=== PATIENT | female | born 1930 | race Caucasian/White ===

== ENCOUNTER 2016-10-21 15:17 | Inpatient (IN) | payer MEDICARE, OTHER ==
[~2016-10-21] VITALS: Ht 154.9 cm; Wt 57.7 kg
[2016-10-21] VITALS (7 sets, daily range): BP systolic 140–171; BP diastolic 72–114; PULSE 72–131; RESP 20; TEMP 98.1–98.7; O2SAT 95–98
[~2016-10-21 15:17] MED LIST: ACET325T11 PO; ASPI81 CHEW; CENTTAB9 PO; CERTTAB6; CITRTAB8 PO; LANSO15 PO; LEVO50TA4 PO; LISI10 PO; LORA0.5T PO; METO25 PO; PACE200T4 PO; SODI1 PO; VITA100018 PO
[2016-10-21] MEDS ORDERED: cefTRIAXone INJ 1,000 MG in SODIUM CHLORIDE 0.9% INJ 100 ML IV ONE (15:30)
[2016-10-21] MEDS ORDERED: SODIUM CHLORIDE 0.9% FLUSH 10 ML FLUSH IVF PRN (15:30)
[2016-10-21] MEDS ORDERED: AZITHROMYCIN INJ 500 MG in SODIUM CHLOR 0.9% 250 ML INJ 250 ML IV ONE (15:30)
[2016-10-21] MEDS ORDERED: methylPREDNISolone SOD SUCC 125 MG/2 ML VIAL IVP ONE (15:30)
--- NOTE | 2016-10-21 15:35 | PD ---
HPI Chief Complaint: cough with pneumonia. Time Seen by Provider: 15:30 Travel History International Travel<30 days: No Contact w/Intl Traveler<30days: No Traveled to known affect area: No History of Present Illness HPI 86-year-old female brought in by EMS from local urgent care with diagnosis of bronchitis/pneumonia. Patient states partially one-week history of increasing cough symptoms with increased cough and shortness of breath and wheezing. Patient has felt feverish and had chills. Patient has no chest pain or lower extremity edema. Patient states started with a head cold which settled in her chest. Currently patient has no headache, sore throat, ear pain , or other upper respiratory symptoms. Patient has no history of COPD or lung disease in the past. Patient does have a history of A. fib and has a pacemaker. Patient denies abdominal pain, nausea, vomiting, or diarrhea. Patient is allergic to anesthesia, Biaxin, codeine, lactose, morphine, Tussionex , and Talwin. PFSH Past Medical History Hx Anticoagulant Therapy: No Arthritis: Yes Asthma: No Atrial Fibrillation: Yes (PAROXYSMAL) Autoimmune Disease: No Blood Disorders: No (brain bleed from fall ) Anxiety: Yes Depression: No Heart Rhythm Problems: Yes (afib, mitral valve prolapse ) Cancer: No Cardiac Catheterization: Yes (09-26-11) Cardiovascular Problems: Yes High Cholesterol: No Chemotherapy: No Chest Pain: Yes Congestive Heart Failure: No COPD: No Cerebrovascular Accident: No Diabetes: No Diminished Hearing: No Endocrine: No Gastrointestinal Disorders: Yes (GERD) GERD: Yes Genitourinary: No Headaches: Yes Hepatitis: No Hiatal Hernia: No Hypertension: Yes Immune Disorder: No Implanted Vascular Access Dvce: Yes Kidney Stones: No Musculoskeletal: Yes (R/L hip replacement.) Neurologic: Yes (brain bleed from fall 02/14/16) Psychiatric: Yes Reproductive: No Respiratory: No Migraines: No Radiation Therapy: No Renal Failure: Yes Seizures: No Sickle Cell Disease: No Sleep Apnea: No Thyroid Disease: Yes Ulcer: No Menopausal: Yes Past Surgical History Abdominal Surgery: Yes (gall bladder) AICD: No Arteriovenous Shunt: No Body Medical Devices: bilateral hips, and pacemaker Cardiac Surgery: Yes (2002, 2012) Cholecystectomy: Yes ([facility] 10-18-93) Coronary Artery Bypass Graft: No Ear Surgery: No Endocrine Surgery: No Eye Surgery: Yes (cataract Bilateral) Genitourinary Surgery: No Gynecologic Surgery: No Hysterectomy: No Insulin Pump: No Joint Replacement: Yes (hip replacment) Neurologic Surgery: No Oral Surgery: Yes (gum surgery) Pacemaker: Yes ([employer]) Thoracic Surgery: No Other Surgery: Yes (PACEMAKER INSERTION 01/07, BIOPSY L LUNG, ) Social History Alcohol Use: No Tobacco Use: No Substance Use: No Allergies-Medications (Allergen,Severity, Reaction): Coded Allergies: Codeine (Verified Allergy, Severe, SEVERE N/V, 03/11/16) . Lactose (Verified Allergy, Severe, 03/11/16) . Talwin (Unverified Allergy, Severe, Psychosis, 03/11/16) Biaxin (Verified Allergy, Unknown, 03/11/16) Morphine (Verified Allergy, Unknown, 03/11/16) Uncoded Allergies: ANAESTHESIA (Allergy, Severe, CARDIAC ARREST, 09/25/11) ANESTHESIA (Allergy, Severe, CARDIAC ARREST, 06/21/15) TUSSINEX (Allergy, Unknown, 06/21/15) Reported Meds & Prescriptions Reported Meds & Active Scripts Active Reported Glucosamine (Glucosamine Sulfate) 500 Mg Cap 900 Mg PO DAILY D3 (Cholecalciferol) 1,000 Unit Cap 1,000 Unit PO DAILY Calcium Citrate + D3 (Calcium Citrate-Vitamin D) 200-250 Mg-Unit Tab 1 Tab PO BID Fluticasone Nasal [place] 50 Mcg/Act Naspr 50 Mcg EACH NARE BID 50 mcg/spray Tylenol (Acetaminophen) 325 Mg Tab 325 Mg PO Q6H PRN Lorazepam 0.5 Mg Tab 0.5 Mg PO DAILY PRN Levothyroxine (Levothyroxine Sodium) 50 Mcg Tab 50 Mcg PO DAILY Amiodarone (Amiodarone HCl) 100 Mg Tab 100 Mg PO DAILY Sodium Chloride 1 Gm Tab 1 Gm PO DAILY Metoprolol Tartrate 25 Mg Tab 12.5 Mg PO BID Lisinopril 5 Mg Tab 5 Mg PO DAILY Aspirin 81 Mg Chew 81 Mg CHEW DAILY Lansoprazole 30 Mg Capdr 30 Mg PO DAILY Review of Systems Except as stated in HPI: all other systems reviewed are Neg General / Constitutional: Positive: Fever (subjective.), Chills Eyes: No: Visual changes HENT: No: Headaches, Lightheadedness, Sore Throat, Rhinitis, Rhinorrhea, Congestion, Neck Stiffness, Neck Pain, Ear Discharge, Earache Cardiovascular: Positive: Dyspnea on exertion, No: Chest Pain or Discomfort, Palpitations, Irregular Rhythm, Tachycardia, Diaphoresis Respiratory: Positive: Cough, Shortness of Breath, Wheezing, No: Sneezing, Orthopnea, Hemoptysis, Stridor, Night Sweats, Pleuritic Pain Gastrointestinal: No: Nausea, Vomiting, Diarrhea, Abdominal Pain Genitourinary: No: Dysuria Musculoskeletal: No: Pain Skin: No Rash Neurologic: No: Weakness Psychiatric: No: Depression Endocrine: No: Polydipsia Hematologic/Lymphatic: No: Easy Bruising Physical Exam Narrative GENERAL: Patient appears in mild distress. Patient has wet tachycardia cough. Patient otherwise is pleasant. SKIN: Warm and dry. Normal color. Normal turgor. HEAD: Atraumatic. Normocephalic. EYES: Pupils equal and round. No scleral icterus. No injection or drainage. ENT: No nasal bleeding or discharge. Mucous membranes pink and moist. TMs are clear bilaterally. No sinus tenderness. Pharynx appears normal without significant erythema or postnasal drip. Airway is patent. NECK: Trachea midline. No JVD. Neck is supple nontender. CARDIOVASCULAR: Regular rate and rhythm. No murmurs gallops or rubs appreciated. RESPIRATORY: No accessory muscle use. Diffuse breath sounds with wheezing to auscultation. Breath sounds equal bilaterally. No significant egophony or increased fremitus. GASTROINTESTINAL: Abdomen soft, non-tender, nondistended. Hepatic and splenic margins not palpable. MUSCULOSKELETAL: Extremities without clubbing, cyanosis, or edema. No obvious deformities. NEUROLOGICAL: Awake and alert. No obvious cranial nerve deficits. Motor grossly within normal limits. Five out of 5 muscle strength in the arms and legs. Normal speech. PSYCHIATRIC: Appropriate mood and affect; insight and judgment normal. Data Data Last Documented VS Vital Signs Date Time Temp Pulse Resp B/P Pulse Ox O2 Delivery O2 Flow Rate FiO2 10/21/16 15:17 98.7 76 20 140/102 95 Orders Complete Blood Count With Diff (10/21/16 15:28) Comprehensive Metabolic Panel (10/21/16 15:28) B-Type Natriuretic Peptide (10/21/16 15:28) Prothrombin Time / Inr (Pt) (10/21/16 15:28) Ckmb (Isoenzyme) Profile (10/21/16 15:28) Troponin I (10/21/16 15:28) Urinalysis - C+S If Indicated (10/21/16 15:28) Blood Culture (10/21/16 15:28) Iv Access Insert/Monitor (10/21/16:28) Electrocardiogram (10/21/16 15:28) Ecg Monitoring (10/21/16 15:28) Oximetry (10/21/16 15:28) Oxygen Administration (10/21/16 15:28) Chest, Single Ap (10/21/16 15:28) Sodium Chloride 0.9% Flush (Ns Flush) (10/21/16 15:30) Methylprednisolone So Succ Inj (Solumedr (10/21/16 15:30) Albuterol-Ipratropium Neb (Duoneb Neb) (10/21/16 15:30) Azithromycin Inj (Zithromax Inj) (10/21/16 15:30) Ceftriaxone Inj (Rocephin Inj) (10/21/16 15:30) Lactic Acid (10/21/16 16:30) Urine Culture (10/21/16 15:56) CKMB (10/21/16 15:35) CKMB% (10/21/16 15:35) Labs Laboratory Tests Test 10/21/16 10/21/16 10/21/16 13:24 15:35 15:56 B-Type Natriuretic Peptide 239 PG/ML White Blood Count 13.6 TH/MM3 Red Blood Count 4.37 MIL/MM3 Hemoglobin 13.6 GM/DL Hematocrit 38.3 % Mean Corpuscular Volume 87.7 FL Mean Corpuscular Hemoglobin 31.0 PG Mean Corpuscular Hemoglobin 35.4 % Concent Red Cell Distribution Width 13.3 % Platelet Count 174 TH/MM3 Mean Platelet Volume 6.8 FL Neutrophils (%) (Auto) 87.6 % Lymphocytes (%) (Auto) 3.8 % Monocytes (%) (Auto) 8.2 % Eosinophils (%) (Auto) 0.3 % Basophils (%) (Auto) 0.1 % Neutrophils # (Auto) 11.9 TH/MM3 Lymphocytes # (Auto) 0.5 TH/MM3 Monocytes # (Auto) 1.1 TH/MM3 Eosinophils # (Auto) 0.0 TH/MM3 Basophils # (Auto) 0.0 TH/MM3 CBC Comment DIFF FINAL Differential Comment Prothrombin Time 10.6 SEC Prothromb Time International 1.0 RATIO Ratio Sodium Level 123 MEQ/L Potassium Level 3.8 MEQ/L Chloride Level 87 MEQ/L Carbon Dioxide Level 25.6 MEQ/L Anion Gap 10 MEQ/L Blood Urea Nitrogen 6 MG/DL Creatinine 0.40 MG/DL Estimat Glomerular Filtration 151 ML/MIN Rate Random Glucose 117 MG/DL Lactic Acid Level 1.0 mmol/L Calcium Level 8.6 MG/DL Total Bilirubin 0.4 MG/DL Aspartate Amino Transf 47 U/L (AST/SGOT) Alanine Aminotransferase 40 U/L (ALT/SGPT) Alkaline Phosphatase 80 U/L Total Creatine Kinase 607 U/L Troponin I 0.02 NG/ML Total Protein 7.2 GM/DL Albumin 3.7 GM/DL Urine Color YELLOW Urine Turbidity HAZY Urine pH 6.5 Urine Specific [place] 1.010 Urine Protein 100 mg/dL Urine Glucose (UA) NEG mg/dL Urine Ketones TRACE mg/dL Urine Occult Blood SMALL Urine Nitrite NEG Urine Bilirubin NEG Urine Urobilinogen LESS THAN 2.0 MG/DL Urine Leukocyte Esterase MOD Urine RBC 5 /hpf Urine WBC 40 /hpf Urine Squamous Epithelial 2 /hpf Cells Urine Bacteria OCC /hpf Urine Mucus FEW /lpf Microscopic Urinalysis Comment CULTURE INDICATED MDM Medical Decision Making Medical Screen Exam Complete: Yes Emergency Medical Condition: Yes Differential Diagnosis Upper respiratory infection. Cough. Wheezing. Pneumonia. Bronchitis. CHF. Narrative Course Patient is medically stable at time of exam. Labs ordered including CBC, CMP, thoracic acid, blood cultures 2, proBNP, troponin, magnesium, and urinalysis. IV access is obtained patient is given 125 mg Solu-Medrol IV as well as 500 mg azithromycin IV and 1000 mg Rocephin IV. Chest x-ray is ordered as well as DuoNeb one every 15 minutes 3. CBC shows leukocytosis of 13.6. Neutrophils elevated 87.6%. BNP slightly elevated at 239. Chest x-ray here as shown to have bilateral atelectasis without obvious pneumonia. This is per radiologist. Urinalysis shows signs of urinary tract infection. Urine culture is pending. CMP shows a sodium of 123. Potassium normal 3.8, chloride is 87, weight is 6, creatinine of 0.40. Creatinine kinase is elevated at 607. 1640 hrs. call hospitalist for admission. 1650 hrs., patient discussed with Dr. Crawford who agrees to admit the patient. Diagnosis Primary Impression: Acute wheezy bronchitis Additional Impressions: Cough in adult Dyspnea Qualified Code: R06.09 - Other form of dyspnea Hyponatremia Urinary tract infection Qualified Code: N30.00 - Acute cystitis without hematuria Admitting Information Admitting Physician Requests: Admit Condition: Stable Nakul Lozoya Oct 21, 2016 15:35
[2016-10-21 15:53] LABS: AUTOMATED NEUTROPHIL # 11.9 TH/MM3 (1.8-7.7); BASOPHIL % 0.1 % (0.0-2.0); EOSINOPHIL % 0.3 % (0.0-4.0); HEMATOCRIT 38.3 % (35.0-46.0); HEMO FLAGS DIFF FINAL; LYMPH % 3.8 % (9.0-44.0); LYMPHOCYTE # 0.5 TH/MM3 (1.0-4.8); MEAN CELL VOLUME 87.7 FL (80.0-100.0); MEAN CORPUSCULAR HGB CONC 35.4 % (32.0-36.0); MONO % 8.2 % (0.0-8.0); NEUT % 87.6 % (16.0-70.0); PLATELET COUNT 174 TH/MM3 (150-450); RED BLOOD COUNT 4.37 MIL/MM3 (4.00-5.30); RED CELL DISTRIBUTION WIDTH 13.3 % (11.6-17.2); WHITE BLOOD COUNT 13.6 TH/MM3 (4.0-11.0)
[2016-10-21 15:58] LABS: PROTHROMBIN TIME - PATIENT 10.6 SEC (9.8-11.6)
[2016-10-21 16:29] LABS: ALKALINE PHOSPHATASE 80 U/L (45-117); ALT (GPT) 40 U/L (10-53); ANION GAP 10 MEQ/L (5-15); AST (GOT) 47 U/L (15-37); BICARBONATE 25.6 MEQ/L (21.0-32.0); BLOOD UREA NITROGEN 6 MG/DL (7-18); CHLORIDE 87 MEQ/L (98-107); CREATINE KINASE 607 U/L (26-192); GLOMERULAR FILTRATION RATE 151 ML/MIN (>89); POTASSIUM 3.8 MEQ/L (3.5-5.1); TOTAL BILIRUBIN ADULT 0.4 MG/DL (0.2-1.0)
--- NOTE | 2016-10-21 16:30 | RADRPT ---
EXAM DATE/TIME: 10/21/2016 15:54 [place] COMPARISON: CHEST SINGLE AP, March 11, 2016, 7:31. INDICATIONS : Short of breath. MEDICAL HISTORY : None. SURGICAL HISTORY : Pacemaker. ENCOUNTER: Initial ACUITY: 1 day PAIN SCORE: 6/10 LOCATION: Bilateral chest FINDINGS: Pacer leads overlying right atrium and right ventricle. Heart size within normal limits. Minimal basi lar atelectasis. No effusion. No pneumothorax. Remote fracture proximal left humerus. CONCLUSION: 1. Minimal basilar atelectasis or scarring. No effusion or pneumothorax. Elevated right hemidiaphragm . Edin Johnston MD on October 21, 2016 at 16:28 Board Certified Radiologist. This report was verified electronically.
[2016-10-21] MEDS: RESP: ALBUTEROL 2.5 MG/IPRATROPIUM 0.5 MG NEB (SCH) INH (16:31)
[2016-10-21 16:33] LABS: BACTERIA, URINE OCC /hpf; BLOOD, URINE SMALL (NEG); COMMENT (UR) CULTURE INDICATED; CULTURE IF INDICATED CULTURE INDICATED; GLUCOSE,URINE NEG (NEG); KETONE, URINE TRACE mg/dL (NEG); MUCUS URINE FEW /lpf (OCC); NITRITE,URINE NEG (NEG); PH, URINE 6.5 (5.0-8.5); SQUAMOUS EPITHELIAL CELL URINE 2 /hpf (0-5); URINE COLOR YELLOW (YELLW/STRAW)
[2016-10-21] MEDS ORDERED: TYLE325T PO (16:36)
[2016-10-21] MEDS ORDERED: LEVO50TA4 PO (16:36)
[2016-10-21] MEDS ORDERED: FLUT50SP EACH NARE (16:36)
[2016-10-21] MEDS ORDERED: SODI1TAB PO (16:36)
[2016-10-21] MEDS ORDERED: LANS30CA PO (16:36)
[2016-10-21] MEDS ORDERED: LORA-373 PO (16:36)
[2016-10-21] MEDS ORDERED: ASPI81CH CHEW (16:36)
[2016-10-21] MEDS ORDERED: GLUC500C5 PO (16:36)
[2016-10-21] MEDS ORDERED: CALC1TAB PO (16:36)
[2016-10-21] MEDS ORDERED: METO25TA3 PO (16:36)
[2016-10-21] MEDS ORDERED: D31000CA PO (16:36)
[2016-10-21] MEDS ORDERED: AMIO0.1T PO (16:36)
[2016-10-21] MEDS ORDERED: LISI-519 PO (16:36)
[2016-10-21 16:40] LABS: SODIUM (NA) 123 MEQ/L (136-145)
[2016-10-21] MEDS ORDERED: SODIUM CHLOR 0.9% 1000 ML INJ 1,000 ML IV SCH (16:53)
[2016-10-21] MEDS ORDERED: ONDANSETRON HCL 4 MG/2 ML VIAL IVP PRN (17:00)
[2016-10-21] MEDS: DOCUSATE SODIUM 100 MG CAP PO SCH (17:00)
[2016-10-21] MEDS ORDERED: ACETAMINOPHEN 325 MG TAB PO PRN (17:00)
[2016-10-21] MEDS ORDERED: NALOXONE HCL 0.4 MG/ML AMP IV PRN (17:00)
[2016-10-21] MEDS ORDERED: BISACODYL 10 MG SUPP RECTAL PRN (17:00)
[2016-10-21] MEDS ORDERED: SODIUM CHLORIDE 0.9% FLUSH 10 ML FLUSH IV FLUSH PRN (17:00)
--- NOTE | 2016-10-21 17:04 | HHI.HP ---
[facility] Hakeem Mayorga MD Admission Diagnosis Bronchitis/UTI/ Hyponatremia Diagnoses: Chief Complaint: Pulmonary symptoms Travel History International Travel<30 Days: No Contact w/Intl Traveler <30 Da: No Traveled to Known Affected Are: No History of Present Illness This is a pleasant 86 y/o Female who was brought in from local Urgent care, for management of possible Pneumonia as per patient she has one week of worsening cough with shortness of breath, expiratory wheezing, some fever and chills, denied Chest pain, had sensation of Cold head and chest, denied headache, sore throat, ear pain, or other upper respiratory symptoms. Patient has no history of COPD or lung disease in the past. Patient does have a history of A. fib and has a pacemaker. Patient denies abdominal pain, nausea, vomiting , or diarrhea. Patient is allergic to anesthesia, Biaxin, codeine, lactose, morphine, Tussionex, and Talwin. as we know the patient has Hypertension, Atrial Fibrillation, Hyperlipidemia, subarachnoid hemorrhage, Anxiety disorder, Hypothyroidism, GERD, had Accelerated Hypertension in the past. seen in Emergency room in the presence of nurse Miss Salvador and her daughter Mrs. Ce Munoz,she states her mother is been dealing with Allergic symptoms for one month but is worse since Sunday meaning six days ago. 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 taking Sodium tablets Past Surgical History Cholecystectomy 10/18/93 Pacemaker placement bilateral Hip arthroplasty Cataract Surgery bilateral Gum Surgery Lung biopsy Reported Medications Reported Meds & Active Scripts Active Reported Glucosamine (Glucosamine Sulfate) 500 Mg Cap 900 Mg PO DAILY D3 (Cholecalciferol) 1,000 Unit Cap 1,000 Unit PO DAILY Calcium Citrate + D3 (Calcium Citrate-Vitamin D) 200-250 Mg-Unit Tab 1 Tab PO BID Fluticasone Nasal [place] 50 Mcg/Act Naspr 50 Mcg EACH NARE BID 50 mcg/spray Tylenol (Acetaminophen) 325 Mg Tab 325 Mg PO Q6H PRN Lorazepam 0.5 Mg Tab 0.5 Mg PO DAILY PRN Levothyroxine (Levothyroxine Sodium) 50 Mcg Tab 50 Mcg PO DAILY Amiodarone (Amiodarone HCl) 100 Mg Tab 100 Mg PO DAILY Sodium Chloride 1 Gm Tab 1 Gm PO DAILY Metoprolol Tartrate 25 Mg Tab 12.5 Mg PO BID Lisinopril 5 Mg Tab 5 Mg PO DAILY Aspirin 81 Mg Chew 81 Mg CHEW DAILY Lansoprazole 30 Mg Capdr 30 Mg PO DAILY Allergies: Coded Allergies: Codeine (Verified Allergy, Severe, SEVERE N/V, 03/11/16) . Lactose (Verified Allergy, Severe, 03/11/16) . Talwin (Unverified Allergy, Severe, Psychosis, 03/11/16) Biaxin (Verified Allergy, Unknown, 03/11/16) Morphine (Verified Allergy, Unknown, 03/11/16) Uncoded Allergies: ANAESTHESIA (Allergy, Severe, CARDIAC ARREST, 09/25/11) ANESTHESIA (Allergy, Severe, CARDIAC ARREST, 06/21/15) TUSSINEX (Allergy, Unknown, 06/21/15) Active Ordered Medications Current Medications Medications (Trade) Dose Ordered Sig/Anastasia Route Start Time Stop Time Status Last Admin (NS Flush) 2 ml UNSCH PRN IVF 10/21/16 15:30 (Cordarone) 100 mg DAILY PO 10/22/16 09:00 (Aspirin Chew) 81 mg DAILY CHEW 10/22/16 09:00 (Flonase Magnus Spr) 1 spray BID EACH NARE 10/21/16 21:00 UNV (Synthroid) 50 mcg DAILY PO 10/22/16 09:00 UNV (Prinivil) 5 mg DAILY PO 10/22/16 09:00 UNV (Ativan) 0.5 mg DAILY PRN PO 10/21/16 17:00 UNV (Lopressor) 12.5 mg BID PO 10/21/16 21:00 UNV (Sodium Chloride) 1 gm DAILY PO 10/22/16 09:00 UNV Non-Formulary Medication 1 tab BID PO 10/21/16 21:00 UNV Non-Formulary Medication 1,000 unit DAILY PO 10/22/16 09:00 UNV Sodium Chloride 1 gm 1 gm TID PO 10/21/16 18:00 UNV (NS 1000 ml Inj) 1,000 ml @ 83 mls/hr Q12H3M IV 10/21/16 16:53 (NS Flush) 2 ml UNSCH PRN IV FLUSH 10/21/16 17:00 UNV (NS Flush) 2 ml BID IV FLUSH 10/21/16 21:00 UNV (Tylenol) 650 mg Q4H PRN PO 10/21/16 17:00 (Zofran Inj) 4 mg Q6H PRN IVP 10/21/16 17:00 UNV (Dulcolax Supp) 10 mg DAILY PRN RECTAL 10/21/16 17:00 UNV (Colace) 100 mg Q12H PO 10/21/16 17:00 UNV (Heparin Inj) 5,000 units Q8H SQ 10/21/16 17:00 UNV (Narcan Inj) 0.4 mg UNSCH PRN IV 10/21/16 17:00 UNV Family History Asked and denied Family history for Hypertension, DM II, and Cancer. Social History SKILLED NURSING resident, Denies any toxic habit. Physical Exam Vital Signs Vital Signs Date Time Temp Pulse Resp B/P Pulse Ox O2 Delivery O2 Flow Rate FiO2 10/21/16: 98.7 76 20 140/102 95 Physical Exam GENERAL: Patient appears in mild distress. Patient has wet tachycardia cough. Patient otherwise is pleasant. SKIN: Warm and dry. Normal color. Normal turgor. HEAD: Atraumatic. Normocephalic. EYES: Pupils equal and round. No scleral icterus. No injection or drainage. ENT: No nasal bleeding or discharge. Mucous membranes pink and moist. TMs are clear bilaterally. No sinus tenderness. Pharynx appears normal without significant erythema or postnasal drip. Airway is patent. NECK: Trachea midline. No JVD. Neck is supple nontender. CARDIOVASCULAR: Regular rate and rhythm. No murmurs gallops or rubs appreciated. RESPIRATORY: No accessory muscle use. Diffuse breath sounds with wheezing to auscultation. Breath sounds equal bilaterally. No significant egophony or increased fremitus. GASTROINTESTINAL: Abdomen soft, non-tender, nondistended. Hepatic and splenic margins not palpable. MUSCULOSKELETAL: Extremities without clubbing, cyanosis, or edema. No obvious deformities. NEUROLOGICAL: Awake and alert. No obvious cranial nerve deficits. Motor grossly within normal limits. Five out of 5 muscle strength in the arms and legs. Normal speech. PSYCHIATRIC: Appropriate mood and affect; insight and judgment normal. Laboratory Laboratory Tests Test 10/21/16 10/21/16 10/21/16 13:24 15:35 15:56 B-Type Natriuretic Peptide 239 White Blood Count 13.6 Red Blood Count 4.37 Hemoglobin 13.6 Hematocrit 38.3 Mean Corpuscular Volume 87.7 Mean Corpuscular Hemoglobin 31.0 Mean Corpuscular Hemoglobin 35.4 Concent Red Cell Distribution Width 13.3 Platelet Count 174 Mean Platelet Volume 6.8 Neutrophils (%) (Auto) 87.6 Lymphocytes (%) (Auto) 3.8 Monocytes (%) (Auto) 8.2 Eosinophils (%) (Auto) 0.3 Basophils (%) (Auto) 0.1 Neutrophils # (Auto) 11.9 Lymphocytes # (Auto) 0.5 Monocytes # (Auto) 1.1 Eosinophils # (Auto) 0.0 Basophils # (Auto) 0.0 CBC Comment DIFF FINAL Differential Comment Prothrombin Time 10.6 Prothromb Time International 1.0 Ratio Sodium Level 123 Potassium Level 3.8 Chloride Level 87 Carbon Dioxide Level 25.6 Anion Gap 10 Blood Urea Nitrogen 6 Creatinine 0.40 Estimat Glomerular Filtration 151 Rate Random Glucose 117 Lactic Acid Level 1.0 Calcium Level 8.6 Total Bilirubin 0.4 Aspartate Amino Transf 47 (AST/SGOT) Alanine Aminotransferase 40 (ALT/SGPT) Alkaline Phosphatase 80 Total Creatine Kinase 607 Troponin I 0.02 Total Protein 7.2 Albumin 3.7 Urine Color YELLOW Urine Turbidity HAZY Urine pH 6.5 Urine Specific [place] 1.010 Urine Protein 100 Urine Glucose (UA) NEG Urine Ketones TRACE Urine Occult Blood SMALL Urine Nitrite NEG Urine Bilirubin NEG Urine Urobilinogen LESS THAN 2.0 Urine Leukocyte Esterase MOD Urine RBC 5 Urine WBC 40 Urine Squamous Epithelial 2 Cells Urine Bacteria OCC Urine Mucus FEW Microscopic Urinalysis Comment CULTURE INDICATED Date/Time Procedure Status Source Growth 10/21/16 15:56 Urine Culture Received Urine Random Urine Pending 10/21/16 15:30 Aerobic Blood Culture Received Blood Peripheral Pending 10/21/16 15:30 Anaerobic Blood Culture Received Blood Peripheral Pending Result Diagram: 10/21/16 1535 10/21/16 1535 Imaging Last Impressions Chest X-Ray 10/21/16 1528 Signed Impressions: Service Date/Time: Friday, October 21, 2016 15:54 - CONCLUSION: 1. Minimal basilar atelectasis or scarring. No effusion or pneumothorax. Elevated right hemidiaphragm. Edin Johnston MD Assessment and Plan Assessment and Plan 1. SIRS will follow, associated Bronchitis, but no major changes on CXR, started on Ceftriaxone, Azithromycin, following, Sputum cultures, Urine, Blood culture, legionella antigen, Bronchodilator Mucolytic and Incentive spirometry. Steroids continued. Influenza A and B antigen. 2. OA by history 3. PAF with status post Pacemaker placement. 4. Anxiety disorder to continue Home medicines, 5. Mitral valve prolapse 6. CAD status post Cardiac Cath 09/26/11 7. GERD continue PPIc 8. Hypertension continue home medicines 9. Right and left hip arthroplasty 10. Brain Hemorrhage status post fall 02/14/16 11. Hypothyroidism her Daughter asking for follow up of thyroid function 12. Hyperlipidemia continue home medicines 13. 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 In the case of services not specified as inpatient-only, they are appropriately provided as inpatient services in accordance with the 2-midnight benchmark. Estimated LOS (days): 2 days is the estimated time the patient will need to remain in the hospital, assuming treatment plan goals are met and no additional complications. Post-Hospital Plan: Long-Term/SKILLED NURSING Arnulfo Grimes MD Oct 21, 2016 17:03 White Blood Count 13.6 Red Blood Count 4.37 Hemoglobin 13.6 Hematocrit 38.3 Mean Corpuscular Volume 87.7 Mean Corpuscular Hemoglobin 31.0 Mean Corpuscular Hemoglobin 35.4 Concent Red Cell Distribution Width 13.3 Platelet Count 174 Mean Platelet Volume 6.8 Neutrophils (%) (Auto) 87.6 Lymphocytes (%) (Auto) 3.8 Monocytes (%) (Auto) 8.2 Eosinophils (%) (Auto) 0.3 Basophils (%) (Auto) 0.1 Neutrophils # (Auto) 11.9 Lymphocytes # (Auto) 0.5 Monocytes # (Auto) 1.1 Eosinophils # (Auto) 0.0 Basophils # (Auto) 0.0 CBC Comment DIFF FINAL Differential Comment Prothrombin Time 10.6 Prothromb Time International 1.0 Ratio Sodium Level 123 Potassium Level 3.8 Chloride Level 87 Carbon Dioxide Level 25.6 Anion Gap 10 Blood Urea Nitrogen 6 Creatinine 0.40 Estimat Glomerular Filtration 151 Rate Random Glucose 117 Lactic Acid Level 1.0 Calcium Level 8.6 Total Bilirubin 0.4 Aspartate Amino Transf 47 (AST/SGOT) Alanine Aminotransferase 40 (ALT/SGPT) Alkaline Phosphatase 80 Total Creatine Kinase 607 Troponin I 0.02 Total Protein 7.2 Albumin 3.7 Urine Color YELLOW Urine Turbidity HAZY Urine pH 6.5 Urine Specific [place] 1.010 Urine Protein 100 Urine Glucose (UA) NEG Urine Ketones TRACE Urine Occult Blood SMALL Urine Nitrite NEG Urine Bilirubin NEG Urine Urobilinogen LESS THAN 2.0 Urine Leukocyte Esterase MOD Urine RBC 5 Urine WBC 40 Urine Squamous Epithelial 2 Cells Urine Bacteria OCC Urine Mucus FEW Microscopic Urinalysis Comment CULTURE INDICATED Date/Time Procedure Status Source Growth 10/21/16 15:56 Urine Culture Received Urine Random Urine Pending 10/21/16 15:30 Aerobic Blood Culture Received Blood Peripheral Pending 10/21/16 15:30 Anaerobic Blood Culture Received Blood Peripheral Pending Result Diagram: 10/21/16 1535 10/21/16 1535 Physician Certification Order for Inpatient Services The services are ordered in accordance with Medicare regulations or non- Medicare payer requirements, as applicable. In the case of services not specified as inpatient-only, they are appropriately provided as inpatient services in accordance with the 2-midnight benchmark. days is the estimated time the patient will need to remain in the hospital, assuming treatment plan goals are met and no additional complications. Arnulfo Grimes MD Oct 21, 2016 17:03
--- NOTE | 2016-10-21 17:24 | PD ---
Physical Exam Date Seen by Provider: Oct 21, 2016 Time Seen by Provider: 16:00 Narrative This is an 86-year-old female history of COPD, who was seen at urgent care and diagnosed with pneumonia and transferred here via EMS. The patient has had progressive cough over the last several days. She denies any objective fevers or chills but subjectively felt feverish. Patient states that she's been trying to bring up phlegm however it's been difficult. Data Data Last Documented VS Vital Signs Date Time Temp Pulse Resp B/P Pulse Ox O2 Delivery O2 Flow Rate FiO2 10/21/16: 98.7 76 20 140/102 95 Orders Complete Blood Count With Diff (10/21/16:) Comprehensive Metabolic Panel (10/21/16:) B-Type Natriuretic Peptide (10/21/16:) Prothrombin Time / Inr (Pt) (10/21/16:) Ckmb (Isoenzyme) Profile (10/21/16:) Troponin I (10/21/16:) Urinalysis - C+S If Indicated (10/21/16:28) Blood Culture (10/21/16:28) Iv Access Insert/Monitor (10/21/16:) Electrocardiogram (10/21/16:) Ecg Monitoring (10/21/16:) Oximetry (10/21/16:28) Oxygen Administration (10/21/16:) Chest, Single Ap (10/21/16 15:28) Sodium Chloride 0.9% Flush (Ns Flush) (10/21/16 15:30) Methylprednisolone So Succ Inj (Solumedr (10/21/16 15:30) Albuterol-Ipratropium Neb (Duoneb Neb) (10/21/16 15:30) Azithromycin Inj (Zithromax Inj) (10/21/16 15:30) Ceftriaxone Inj (Rocephin Inj) (10/21/16 15:30) Lactic Acid (10/21/16 16:30) Urine Culture (10/21/16 15:56) CKMB (10/21/16 15:35) CKMB% (10/21/16 15:35) Amiodarone (Cordarone) (10/22/16 09:00) Aspirin Chew (Aspirin Chew) (10/22/16 09:00) Fluticasone Magnus Spr (Flonase Magnus Spr) (10/21/16 21:00) Levothyroxine (Synthroid) (10/22/16 09:00) Lisinopril (Prinivil) (10/22/16 09:00) Lorazepam (Ativan) (10/21/16 17:00) Metoprolol Tartrate (Lopressor) (10/21/16 21:00) Sodium Chloride (Sodium Chloride) (10/22/16 09:00) Calcium-Vit D 250-125 Mg (Oscal-D 250-12 (10/21/16 21:00) Cholecalciferol (Vitamin D3) (10/22/16 09:00) Sodium Chloride (Sodium Chloride) (10/21/16 18:00) Admit Order (Ed Use Only) (10/21/16 16:50) Labs Laboratory Tests Test 10/21/16 10/21/16 10/21/16 13:24 15:35 15:56 B-Type Natriuretic Peptide 239 PG/ML White Blood Count 13.6 TH/MM3 Red Blood Count 4.37 MIL/MM3 Hemoglobin 13.6 GM/DL Hematocrit 38.3 % Mean Corpuscular Volume 87.7 FL Mean Corpuscular Hemoglobin 31.0 PG Mean Corpuscular Hemoglobin 35.4 % Concent Red Cell Distribution Width 13.3 % Platelet Count 174 TH/MM3 Mean Platelet Volume 6.8 FL Neutrophils (%) (Auto) 87.6 % Lymphocytes (%) (Auto) 3.8 % Monocytes (%) (Auto) 8.2 % Eosinophils (%) (Auto) 0.3 % Basophils (%) (Auto) 0.1 % Neutrophils # (Auto) 11.9 TH/MM3 Lymphocytes # (Auto) 0.5 TH/MM3 Monocytes # (Auto) 1.1 TH/MM3 Eosinophils # (Auto) 0.0 TH/MM3 Basophils # (Auto) 0.0 TH/MM3 CBC Comment DIFF FINAL Differential Comment Prothrombin Time 10.6 SEC Prothromb Time International 1.0 RATIO Ratio Sodium Level 123 MEQ/L Potassium Level 3.8 MEQ/L Chloride Level 87 MEQ/L Carbon Dioxide Level 25.6 MEQ/L Anion Gap 10 MEQ/L Blood Urea Nitrogen 6 MG/DL Creatinine 0.40 MG/DL Estimat Glomerular Filtration 151 ML/MIN Rate Random Glucose 117 MG/DL Lactic Acid Level 1.0 mmol/L Calcium Level 8.6 MG/DL Total Bilirubin 0.4 MG/DL Aspartate Amino Transf 47 U/L (AST/SGOT) Alanine Aminotransferase 40 U/L (ALT/SGPT) Alkaline Phosphatase 80 U/L Total Creatine Kinase 607 U/L Creatine Kinase MB 18.0 NG/ML Creatine Kinase MB % 3.0 % Troponin I 0.02 NG/ML Total Protein 7.2 GM/DL Albumin 3.7 GM/DL Urine Color YELLOW Urine Turbidity HAZY Urine pH 6.5 Urine Specific [place] 1.010 Urine Protein 100 mg/dL Urine Glucose (UA) NEG mg/dL Urine Ketones TRACE mg/dL Urine Occult Blood SMALL Urine Nitrite NEG Urine Bilirubin NEG Urine Urobilinogen LESS THAN 2.0 MG/DL Urine Leukocyte Esterase MOD Urine RBC 5 /hpf Urine WBC 40 /hpf Urine Squamous Epithelial 2 /hpf Cells Urine Bacteria OCC /hpf Urine Mucus FEW /lpf Microscopic Urinalysis Comment CULTURE INDICATED MDM Medical Record Reviewed: Yes Supervised Visit with CESAR: Yes Differential Diagnosis Bronchitis versus pneumonia versus COPD exacerbation Narrative Course 86-year-old female presents with cough and congestion. The patient was sent here from an urgent care with a diagnosis of pneumonia. The patient has no obvious pneumonia on x-ray. She does have diffuse wheezing and rhonchi. This at the very least is severe bronchitis. The patient also has a UTI and a sodium of 126. She'll be admitted to the hospital Sunday antibiotics. She'll also have sodium replacement with normal saline. I discussed with both the patient and her daughter the findings and the plan and they're agreeable. Diagnosis Primary Impression: Acute wheezy bronchitis Additional Impressions: Urinary tract infection Qualified Code: N30.00 - Acute cystitis without hematuria Dyspnea Qualified Code: R06.09 - Other form of dyspnea Hyponatremia Cough in adult Admitting Information Admitting Physician Requests: Admit Condition: Stable Sascha Lewis MD Oct 21, 2016 17:24
[2016-10-21] MEDS: HEPARIN SODIUM - SQ 10,000 UNITS/ML VIAL SQ SCH (17:43)
[2016-10-21] MEDS: SODIUM CHLORIDE 1 GRAM TAB PO SCH (17:43)
[2016-10-21] MEDS: RESP: BUDESONIDE 0.5 MG/2 ML NEB NEB SCH (20:00)
[2016-10-21] MEDS: RESP: IPRATROPIUM 0.5 MG/2.5 ML NEB NEB SCH ×2 (20:51→23:46)
[2016-10-21] MEDS: FLUTICASONE PROPIONATE 50 MCG/ACT 16 GM NASAL SPRAY EACH NARE SCH (22:14)
[2016-10-21] MEDS: CALCIUM/VITAMIN D 250 MG/125 U TAB PO SCH (22:15)
[2016-10-21] MEDS: guaiFENesin E.R. 600 MG TAB PO SCH (22:15)
[2016-10-21] MEDS: SODIUM CHLORIDE 0.9% FLUSH 10 ML FLUSH IV FLUSH SCH (22:15)
[2016-10-21] MEDS: METOPROLOL TARTRATE 25 MG TAB PO SCH (22:15)
[2016-10-21 22:17] LABS: CKMB 19.1 NG/ML (0.5-3.6)
[2016-10-22] VITALS (9 sets, daily range): BP systolic 152–195; BP diastolic 67–83; PULSE 75–86; RESP 14–24; TEMP 97–98.7; O2SAT 92–98
[2016-10-22] MEDS: HEPARIN SODIUM - SQ 10,000 UNITS/ML VIAL SQ SCH ×3 (00:29→15:41)
[2016-10-22] MEDS: RESP: IPRATROPIUM 0.5 MG/2.5 ML NEB NEB SCH ×5 (03:57→21:32)
[2016-10-22] MEDS: DOCUSATE SODIUM 100 MG CAP PO SCH ×2 (04:06→15:41)
[2016-10-22 05:26] LABS: AUTOMATED NEUTROPHIL # 10.5 TH/MM3 (1.8-7.7); BASOPHIL % 0.1 % (0.0-2.0); HEMATOCRIT 37.2 % (35.0-46.0); HEMO FLAGS DIFF FINAL; LYMPH % 1.9 % (9.0-44.0); LYMPHOCYTE # 0.2 TH/MM3 (1.0-4.8); MEAN CELL VOLUME 88.9 FL (80.0-100.0); MEAN CORPUSCULAR HEMOGLOBIN 30.9 PG (27.0-34.0); MEAN CORPUSCULAR HGB CONC 34.7 % (32.0-36.0); MONO % 1.1 % (0.0-8.0); NEUT % 96.9 % (16.0-70.0); PLATELET COUNT 171 TH/MM3 (150-450); RED BLOOD COUNT 4.19 MIL/MM3 (4.00-5.30); RED CELL DISTRIBUTION WIDTH 13.4 % (11.6-17.2); WHITE BLOOD COUNT 10.8 TH/MM3 (4.0-11.0)
[2016-10-22 05:36] LABS: PROTHROMBIN TIME - PATIENT 10.7 SEC (9.8-11.6)
[2016-10-22 06:02] LABS: ANION GAP 10 MEQ/L (5-15); BICARBONATE 26.1 MEQ/L (21.0-32.0); BLOOD UREA NITROGEN 5 MG/DL (7-18); CHLORIDE 96 MEQ/L (98-107); CREATINE KINASE 653 U/L (26-192); GLOMERULAR FILTRATION RATE 125 ML/MIN (>89); HDL CHOLESTEROL 63.1 MG/DL (40.0-60.0); LDL CHOLESTEROL 79 MG/DL (0-99); POTASSIUM 3.1 MEQ/L (3.5-5.1); SODIUM (NA) 132 MEQ/L (136-145)
[2016-10-22] MEDS: RESP: BUDESONIDE 0.5 MG/2 ML NEB NEB SCH ×2 (07:58→21:32)
[2016-10-22] MEDS: AMIODARONE 200 MG TAB PO SCH (08:14)
[2016-10-22] MEDS: CHOLECALCIFEROL (VIT D3) 1000 UNIT TAB PO SCH (08:14)
[2016-10-22] MEDS: CALCIUM/VITAMIN D 250 MG/125 U TAB PO SCH ×2 (08:15→20:43)
[2016-10-22] MEDS: LEVOTHYROXINE SODIUM 50 MCG TAB PO SCH (08:15)
[2016-10-22] MEDS: METOPROLOL TARTRATE 25 MG TAB PO SCH ×2 (08:15→20:43)
[2016-10-22] MEDS: PANTOPRAZOLE SOD 40 MG DELAYED RELEASE TAB PO SCH (08:15)
[2016-10-22] MEDS: guaiFENesin E.R. 600 MG TAB PO SCH ×2 (08:15→20:43)
[2016-10-22] MEDS: LORATADINE 10 MG TAB PO SCH (08:15)
[2016-10-22] MEDS: LISINOPRIL 5 MG TAB PO SCH (08:16)
[2016-10-22] MEDS: SODIUM CHLORIDE 1 GRAM TAB PO SCH ×2 (08:17→08:18)
[2016-10-22] MEDS: ASPIRIN 81 MG CHEW TAB CHEW SCH (08:17)
--- NOTE | 2016-10-22 08:48 | HHI.PR ---
Subjective Remarks This is a pleasant 86 y/o Female who was brought in from local Urgent care, for management of possible Pneumonia as per patient she has one week of worsening cough with shortness of breath, expiratory wheezing, some fever and chills, denied Chest pain, had sensation of Cold head and chest, denied headache, sore throat, ear pain, or other upper respiratory symptoms. Patient has no history of COPD or lung disease in the past. Patient does have a history of A. fib and has a pacemaker. Patient denies abdominal pain, nausea, vomiting , or diarrhea. Patient is allergic to anesthesia, Biaxin, codeine, lactose, morphine, Tussionex, and Talwin. as we know the patient has Hypertension, Atrial Fibrillation, Hyperlipidemia, subarachnoid hemorrhage, Anxiety disorder, Hypothyroidism, GERD, had Accelerated Hypertension in the past. seen in Emergency room in the presence of nurse Miss Salvador and her daughter Mrs. Ce Munoz,she states her mother is been dealing with Allergic symptoms for one month but is worse since Sunday meaning six days ago. 10/22: Seen in her bedroom in the presence of nurse Miss Urbinah, Improving Hyponatremia to 132 and Potassium today 3.1 replaced, continue present management. she is active and no need for Physical Therapy. Objective Vital Signs Date Time Temp Pulse Resp B/P Pulse Ox O2 Delivery O2 Flow Rate FiO2 10/22/16 07:54 97 Nasal Cannula 2.00 10/22/16 04:57 97.0 77 14 157/71 98 10/22/16 00:36 98.3 86 22 181/79 97 10/21/16 23:47 98 Nasal Cannula 2.00 10/21/16 22:17 131 10/21/16 22:13 Nasal Cannula 2.00 10/21/16 20:55 98 Nasal Cannula 2.00 10/21/16 20:34 98.1 72 20 169/72 96 10/21/16 20:19 97 10/21/16 17:45 95 Nasal Cannula 2 10/21/16 17:00 89 20 171/114 95 Room Air 10/21/16 15:17 98.7 76 20 140/102 95 I/O 10/21/16 10/21/16 10/21/16 10/22/16 10/22/16 10/22/16 07:00 15:00 23:00 07:00 15:00 23:00 Intake Total 656 ml 660 ml Balance 656 ml 660 ml IV Total 656 ml 660 ml # Voids 10 5 Result Diagram: 10/22/16 0334 10/22/16 0334 Imaging Last Impressions Chest X-Ray 10/21/16 1528 Signed Impressions: Service Date/Time: Friday, October 21, 2016 15:54 - CONCLUSION: 1. Minimal basilar atelectasis or scarring. No effusion or pneumothorax. Elevated right hemidiaphragm. Edin Johnston MD Procedures No procedures performed. Other Results Laboratory Tests Test 10/21/16 10/21/16 10/21/16 10/22/16 13:24 15:35 15:56 03:34 B-Type Natriuretic Peptide 239 PG/ML Lactic Acid Level 1.0 mmol/L Total Bilirubin 0.4 MG/DL Aspartate Amino Transf 47 U/L (AST/SGOT) Alanine Aminotransferase 40 U/L (ALT/SGPT) Alkaline Phosphatase 80 U/L Total Protein 7.2 GM/DL Albumin 3.7 GM/DL Urine Color YELLOW Urine Turbidity HAZY Urine pH 6.5 Urine Specific [place] 1.010 Urine Protein 100 mg/dL Urine Glucose (UA) NEG mg/dL Urine Ketones TRACE mg/dL Urine Occult Blood SMALL Urine Nitrite NEG Urine Bilirubin NEG Urine Urobilinogen LESS THAN 2.0 MG/DL Urine Leukocyte Esterase MOD Urine RBC 5 /hpf Urine WBC 40 /hpf Urine Squamous Epithelial 2 /hpf Cells Urine Bacteria OCC /hpf Urine Mucus FEW /lpf Microscopic Urinalysis Comment CULTURE INDICATED White Blood Count 10.8 TH/MM3 Red Blood Count 4.19 MIL/MM3 Hemoglobin 12.9 GM/DL Hematocrit 37.2 % Mean Corpuscular Volume 88.9 FL Mean Corpuscular Hemoglobin 30.9 PG Mean Corpuscular Hemoglobin 34.7 % Concent Red Cell Distribution Width 13.4 % Platelet Count 171 TH/MM3 Mean Platelet Volume 7.1 FL Neutrophils (%) (Auto) 96.9 % Lymphocytes (%) (Auto) 1.9 % Monocytes (%) (Auto) 1.1 % Eosinophils (%) (Auto) 0.0 % Basophils (%) (Auto) 0.1 % Neutrophils # (Auto) 10.5 TH/MM3 Lymphocytes # (Auto) 0.2 TH/MM3 Monocytes # (Auto) 0.1 TH/MM3 Eosinophils # (Auto) 0.0 TH/MM3 Basophils # (Auto) 0.0 TH/MM3 CBC Comment DIFF FINAL Differential Comment Prothrombin Time 10.7 SEC Prothromb Time International 1.0 RATIO Ratio Sodium Level 132 MEQ/L Potassium Level 3.1 MEQ/L Chloride Level 96 MEQ/L Carbon Dioxide Level 26.1 MEQ/L Anion Gap 10 MEQ/L Blood Urea Nitrogen 5 MG/DL Creatinine 0.47 MG/DL Estimat Glomerular Filtration 125 ML/MIN Rate Random Glucose 138 MG/DL Calcium Level 8.6 MG/DL Total Creatine Kinase 653 U/L Creatine Kinase MB 20.0 NG/ML Creatine Kinase MB % 3.1 % Troponin I 0.02 NG/ML Triglycerides Level 73 MG/DL Cholesterol Level 157 MG/DL LDL Cholesterol 79 MG/DL HDL Cholesterol 63.1 MG/DL Cholesterol/HDL Ratio 2.48 RATIO Free Thyroxine 1.20 NG/DL Thyroid Stimulating Hormone 1.350 uIU/ML 3rd Gen Objective Remarks GENERAL: Patient appears in mild distress. Patient has wet tachycardia cough. Patient otherwise is pleasant. SKIN: Warm and dry. Normal color. Normal turgor. HEAD: Atraumatic. Normocephalic. EYES: Pupils equal and round. No scleral icterus. No injection or drainage. ENT: No nasal bleeding or discharge. Mucous membranes pink and moist. TMs are clear bilaterally. No sinus tenderness. Pharynx appears normal without significant erythema or postnasal drip. Airway is patent. NECK: Trachea midline. No JVD. Neck is supple nontender. CARDIOVASCULAR: Regular rate and rhythm. No murmurs gallops or rubs appreciated. RESPIRATORY: No accessory muscle use. Diffuse breath sounds with wheezing to auscultation. Breath sounds equal bilaterally. No significant egophony or increased fremitus. GASTROINTESTINAL: Abdomen soft, non-tender, nondistended. Hepatic and splenic margins not palpable. MUSCULOSKELETAL: Extremities without clubbing, cyanosis, or edema. No obvious deformities. NEUROLOGICAL: Awake and alert. No obvious cranial nerve deficits. Motor grossly within normal limits. Five out of 5 muscle strength in the arms and legs. Normal speech. PSYCHIATRIC: Appropriate mood and affect; insight and judgment normal. Medications and IVs Current Medications Medications (Trade) Dose Ordered Sig/Anastasia Route Start Time Stop Time Status Last Admin (NS Flush) 2 ml UNSCH PRN IVF 10/21/16 15:30 (Cordarone) 100 mg DAILY PO 10/22/16 09:00 10/22/16 08:14 (Aspirin Chew) 81 mg DAILY CHEW 10/22/16 09:00 10/22/16 08:17 (Flonase Magnus Spr) 1 spray BID EACH NARE 10/21/16 21:00 10/21/16 22:14 (Synthroid) 50 mcg DAILY PO 10/22/16 09:00 10/22/16 08:15 (Prinivil) 5 mg DAILY PO 10/22/16 09:00 10/22/16 08:16 (Ativan) 0.5 mg DAILY PRN PO 10/21/16 17:00 (Lopressor) 12.5 mg BID PO 10/21/16 21:00 10/22/16 08:15 (Sodium Chloride) 1 gm DAILY PO 10/22/16 09:00 (Oscal-D 250-125) 500 mg BID PO 10/21/16 21:00 10/22/16 08:15 (Vitamin D3) 1,000 units DAILY PO 10/22/16 09:00 10/22/16 08:14 Sodium Chloride 1 gm 1 gm TID PO 10/21/16 18:00 10/22/16 08:17 (NS 1000 ml Inj) 1,000 ml @ 83 mls/hr Q12H3M IV 10/21/16 16:53 10/21/16 17:41 (NS Flush) 2 ml UNSCH PRN IV FLUSH 10/21/16 17:00 (NS Flush) 2 ml BID IV FLUSH 10/21/16 21:00 10/21/16 22:15 (Tylenol) 650 mg Q4H PRN PO 10/21/16 17:00 (Zofran Inj) 4 mg Q6H PRN IVP 10/21/16 17:00 (Dulcolax Supp) 10 mg DAILY PRN RECTAL 10/21/16 17:00 (Colace) 100 mg Q12H PO 10/21/16 17:00 10/22/16 04:06 (Heparin Inj) 5,000 units Q8H SQ 10/21/16 17:00 10/22/16 08:16 Naloxone HCl 0.4 mg 0.4 mg UNSCH PRN IV 10/21/16 17:00 Ceftriaxone Sodium 1000 mg/ Sodium Chloride 100 ml @ 200 mls/hr Q24H IV 10/22/16 15:00 (Zithromax Inj/ NS 250 ml Inj) 250 ml @ 250 mls/hr Q24H IV 10/22/16 15:00 (Mucinex Er) 600 mg BID PO 10/21/16 21:00 10/22/16 08:15 (Protonix) 40 mg DAILY PO 10/22/16 09:00 10/22/16 08:15 (Claritin) 5 mg DAILY PO 10/21/16 18:00 10/22/16 08:15 A/P Assessment and Plan 1. SIRS will follow, associated Bronchitis, but no major changes on CXR, started on Ceftriaxone, Azithromycin, following, Sputum cultures, Urine, Blood culture, legionella antigen, Bronchodilator Mucolytic and Incentive spirometry. Steroids continued. Influenza A and B antigen negative, negative blood cultures, no Legionella. 2. OA by history 3. PAF with status post Pacemaker placement. 4. Anxiety disorder to continue Home medicines, stable. 5. Mitral valve prolapse 6. CAD status post Cardiac Cath 09/26/11 7. GERD continue PPI 8. Hypertension controlled. 9. Right and left hip arthroplasty 10. Brain Hemorrhage status post fall 02/14/16 11. Hypothyroidism her Daughter asking for follow up of thyroid function 12. Hyperlipidemia continue home medicines 13. Chronic Hyponatremia improving on IV fluids and Sodium tablets, Hypokalemia replaced and following. Hypomagnesemia replaced. 14. Rhabdomyolysis improving on IV fluids. DVT prophylaxis SCDs Code Status Full Code Discussed Condition With Patient in the room nurse present Miss Gerber Discharge Planning Expected by tomorrow Arnulfo Grimes MD Oct 22, 2016 08:48
[2016-10-22] MEDS ORDERED: POTASSIUM CHLORIDE 20 MEQ CONTROLLED RELEASE TAB PO ONE ×2 (09:00→12:00)
[2016-10-22] MEDS: FLUTICASONE PROPIONATE 50 MCG/ACT 16 GM NASAL SPRAY EACH NARE SCH ×2 (09:00→20:44)
[2016-10-22 09:33] LABS: MAGNESIUM 1.9 MG/DL (1.5-2.5)
[2016-10-22 12:51] LABS: HEMOGLOBIN A1a 1.3 %; HEMOGLOBIN A1b 1.7 %; HEMOGLOBIN Ao 84.4 %; HEMOGLOBIN LA1C 2.4 %; HEMOGLOBIN P3 5.6 %
[2016-10-22] MEDS: cefTRIAXone INJ 1,000 MG in SODIUM CHLORIDE 0.9% INJ 100 ML IV SCH (14:09)
[2016-10-22] MEDS: AZITHROMYCIN INJ 500 MG in SODIUM CHLOR 0.9% 250 ML INJ 250 ML IV SCH (15:39)
--- NOTE | 2016-10-22 15:52 | EKG ---
Date Performed: 10/21/2016 Time Performed: 15:59:24 PTAGE: 86 years EKG: ELECTRONIC ATRIAL PACEMAKER ELECTRONIC VENTRICULAR PACEMAKER When compared to previous trac ing, no significant change. ABNORMAL RHYTHM ECG PREVIOUS TRACING : 03/12/2016 03.58 DOCTOR: Ladarius Adler Interpretating Date/Time 10/22/2016 15:52:08
[2016-10-22] MEDS ORDERED: MAGNESIUM SULFATE 1 GM PREMIX 100 ML IV SCH (17:00)
[2016-10-22] MEDS: SODIUM CHLORIDE 0.9% FLUSH 10 ML FLUSH IV FLUSH SCH (20:45)
[2016-10-23] VITALS (10 sets, daily range): BP systolic 145–177; BP diastolic 69–87; PULSE 75–99; RESP 18–22; TEMP 97.2–98; O2SAT 91–98
[2016-10-23] MEDS: RESP: IPRATROPIUM 0.5 MG/2.5 ML NEB NEB SCH ×6 (00:01→20:37)
[2016-10-23] MEDS ORDERED: BENZONATATE 100 MG CAP PO PRN (01:15)
[2016-10-23] MEDS: DOCUSATE SODIUM 100 MG CAP PO SCH ×2 (05:29→16:25)
[2016-10-23] MEDS: BENZONATATE 100 MG CAP PO PRN ×3 (06:19→22:05)
--- NOTE | 2016-10-23 08:00 | HHI.PR ---
Subjective Remarks This is a pleasant 86 y/o Female who was brought in from local Urgent care, for management of possible Pneumonia as per patient she has one week of worsening cough with shortness of breath, expiratory wheezing, some fever and chills, denied Chest pain, had sensation of Cold head and chest, denied headache, sore throat, ear pain, or other upper respiratory symptoms. Patient has no history of COPD or lung disease in the past. Patient does have a history of A. fib and has a pacemaker. Patient denies abdominal pain, nausea, vomiting , or diarrhea. Patient is allergic to anesthesia, Biaxin, codeine, lactose, morphine, Tussionex, and Talwin. as we know the patient has Hypertension, Atrial Fibrillation, Hyperlipidemia, subarachnoid hemorrhage, Anxiety disorder, Hypothyroidism, GERD, had Accelerated Hypertension in the past. seen in Emergency room in the presence of nurse Miss Sierrasay and her daughter Mrs. Ce Munoz,she states her mother is been dealing with Allergic symptoms for one month but is worse since Sunday meaning six days ago. 10/22: Improving Hyponatremia to 132 and Potassium today 3.1 replaced, she is active and no need for Physical Therapy. 10/23: Seen in her bedroom in the presence of her Daughter her laboratory was reviewed, she is not feeling well continue with cough not improving, also not able to eat well, added Ensure she uses Chocolate, asked for CT Chest. Objective Vital Signs Date Time Temp Pulse Resp B/P Pulse Ox O2 Delivery O2 Flow Rate FiO2 10/23/16 04:00 98.0 91 22 145/69 93 10/23/16 03:27 91 Nasal Cannula 2.00 10/23/16 02:05 Nasal Cannula 2.00 10/23/16 00:02 96 21 10/22/16 21:34 92 Nasal Cannula 2.00 10/22/16 20:00 98.7 83 24 152/70 92 10/22/16 20:00 78 10/22/16 16:04 98.1 83 19 159/71 93 10/22/16 12:27 97.7 75 20 152/67 94 10/22/16 08:00 96 Nasal Cannula 2.00 10/22/16 08:00 78 I/O 10/22/16 10/22/16 10/22/16 10/23/16 10/23/16 10/23/16 07:00 15:00 23:00 07:00 15:00 23:00 Intake Total 660 ml 720 ml 480 ml 240 ml Balance 660 ml 720 ml 480 ml 240 ml Intake Oral 720 ml 480 ml 240 ml IV Total 660 ml # Voids 5 2 1 3 # Bowel Movements 0 0 0 Result Diagram: 10/22/16 0334 10/22/16 0334 Imaging Last Impressions Chest X-Ray 10/21/16 1528 Signed Impressions: Service Date/Time: Friday, October 21, 2016 15:54 - CONCLUSION: 1. Minimal basilar atelectasis or scarring. No effusion or pneumothorax. Elevated right hemidiaphragm. Edin Johnston MD Procedures No procedures performed. Other Results Laboratory Tests Test 10/21/16 10/21/16 10/21/16 10/22/16 13:24 15:35 15:56 03:34 B-Type Natriuretic Peptide 239 PG/ML Lactic Acid Level 1.0 mmol/L Total Bilirubin 0.4 MG/DL Aspartate Amino Transf 47 U/L (AST/SGOT) Alanine Aminotransferase 40 U/L (ALT/SGPT) Alkaline Phosphatase 80 U/L Total Protein 7.2 GM/DL Albumin 3.7 GM/DL Urine Color YELLOW Urine Turbidity HAZY Urine pH 6.5 Urine Specific [place] 1.010 Urine Protein 100 mg/dL Urine Glucose (UA) NEG mg/dL Urine Ketones TRACE mg/dL Urine Occult Blood SMALL Urine Nitrite NEG Urine Bilirubin NEG Urine Urobilinogen LESS THAN 2.0 MG/DL Urine Leukocyte Esterase MOD Urine RBC 5 /hpf Urine WBC 40 /hpf Urine Squamous Epithelial 2 /hpf Cells Urine Bacteria OCC /hpf Urine Mucus FEW /lpf Microscopic Urinalysis Comment CULTURE INDICATED White Blood Count 10.8 TH/MM3 Red Blood Count 4.19 MIL/MM3 Hemoglobin 12.9 GM/DL Hematocrit 37.2 % Mean Corpuscular Volume 88.9 FL Mean Corpuscular Hemoglobin 30.9 PG Mean Corpuscular Hemoglobin 34.7 % Concent Red Cell Distribution Width 13.4 % Platelet Count 171 TH/MM3 Mean Platelet Volume 7.1 FL Neutrophils (%) (Auto) 96.9 % Lymphocytes (%) (Auto) 1.9 % Monocytes (%) (Auto) 1.1 % Eosinophils (%) (Auto) 0.0 % Basophils (%) (Auto) 0.1 % Neutrophils # (Auto) 10.5 TH/MM3 Lymphocytes # (Auto) 0.2 TH/MM3 Monocytes # (Auto) 0.1 TH/MM3 Eosinophils # (Auto) 0.0 TH/MM3 Basophils # (Auto) 0.0 TH/MM3 CBC Comment DIFF FINAL Differential Comment Prothrombin Time 10.7 SEC Prothromb Time International 1.0 RATIO Ratio Sodium Level 132 MEQ/L Potassium Level 3.1 MEQ/L Chloride Level 96 MEQ/L Carbon Dioxide Level 26.1 MEQ/L Anion Gap 10 MEQ/L Blood Urea Nitrogen 5 MG/DL Creatinine 0.47 MG/DL Estimat Glomerular Filtration 125 ML/MIN Rate Random Glucose 138 MG/DL Hemoglobin A1c 5.5 % Calcium Level 8.6 MG/DL Magnesium Level 1.9 MG/DL Total Creatine Kinase 653 U/L Creatine Kinase MB 20.0 NG/ML Creatine Kinase MB % 3.1 % Troponin I 0.02 NG/ML Triglycerides Level 73 MG/DL Cholesterol Level 157 MG/DL LDL Cholesterol 79 MG/DL HDL Cholesterol 63.1 MG/DL Cholesterol/HDL Ratio 2.48 RATIO Free Thyroxine 1.20 NG/DL Thyroid Stimulating Hormone 1.350 uIU/ML 3rd Gen Objective Remarks GENERAL: No acute distress. but has Cough. SKIN: Warm and dry. Normal color. Normal turgor. HEAD: Atraumatic. Normocephalic. EYES: Pupils equal and round. No scleral icterus. No injection or drainage. ENT: No nasal bleeding or discharge. NECK: Trachea midline. No JVD. Neck is supple nontender. CARDIOVASCULAR: Regular rate and rhythm. No murmurs gallops or rubs appreciated. RESPIRATORY: Decreased breath sounds bilateral, No wheezing, crackles. but evident Mucus production. GASTROINTESTINAL: Abdomen soft, non-tender, nondistended. Hepatic and splenic margins not palpable. MUSCULOSKELETAL: Extremities without clubbing, cyanosis, or edema. NEUROLOGICAL: Awake and alert. No obvious cranial nerve deficits. PSYCHIATRIC: Appropriate mood and affect; insight and judgment normal. Medications and IVs Current Medications Medications (Trade) Dose Ordered Sig/Anastasia Route Start Time Stop Time Status Last Admin (NS Flush) 2 ml UNSCH PRN IVF 10/21/16 15:30 (Cordarone) 100 mg DAILY PO 10/22/16 09:00 10/22/16 08:14 (Aspirin Chew) 81 mg DAILY CHEW 10/22/16 09:00 10/22/16 08:17 (Flonase Magnus Spr) 1 spray BID EACH NARE 10/21/16 21:00 10/22/16 20:44 (Synthroid) 50 mcg DAILY PO 10/22/16 09:00 10/22/16 08:15 (Prinivil) 5 mg DAILY PO 10/22/16 09:00 10/22/16 08:16 (Ativan) 0.5 mg DAILY PRN PO 10/21/16 17:00 (Lopressor) 12.5 mg BID PO 10/21/16 21:00 10/22/16 20:43 (Sodium Chloride) 1 gm DAILY PO 10/22/16 09:00 (Oscal-D 250-125) 500 mg BID PO 10/21/16 21:00 10/22/16 20:43 (Vitamin D3) 1,000 units DAILY PO 10/22/16 09:00 10/22/16 08:14 (NS Flush) 2 ml UNSCH PRN IV FLUSH 10/21/16 17:00 (NS Flush) 2 ml BID IV FLUSH 10/21/16 21:00 10/22/16 20:45 (Tylenol) 650 mg Q4H PRN PO 10/21/16 17:00 (Zofran Inj) 4 mg Q6H PRN IVP 10/21/16 17:00 (Dulcolax Supp) 10 mg DAILY PRN RECTAL 10/21/16 17:00 (Colace) 100 mg Q12H PO 10/21/16 17:00 10/23/16 05:29 Naloxone HCl 0.4 mg 0.4 mg UNSCH PRN IV 10/21/16 17:00 Ceftriaxone Sodium 1000 mg/ Sodium Chloride 100 ml @ 200 mls/hr Q24H IV 10/22/16 15:00 10/22/16 14:09 (Zithromax Inj/ NS 250 ml Inj) 250 ml @ 250 mls/hr Q24H IV 10/22/16 15:00 10/22/16 15:39 (Mucinex Er) 600 mg BID PO 10/21/16 21:00 10/22/16 20:43 (Protonix) 40 mg DAILY PO 10/22/16 09:00 10/22/16 08:15 (Claritin) 5 mg DAILY PO 10/21/16 18:00 10/22/16 08:15 (Tessalon) 200 mg TID PRN PO 10/23/16 05:45 10/23/16 06:19 A/P Assessment and Plan 1. SIRS will follow, associated Bronchitis, but no major changes on CXR, started on Ceftriaxone, Azithromycin, cultures negative, Influenza A and B antigen negative, continue Bronchodilator Mucolytic and Incentive spirometry. Steroids continued. asked for CT chest with IV contrast. 2. OA by history 3. PAF with status post Pacemaker placement. 4. Anxiety disorder to continue Home medicines, stable. 5. Mitral valve prolapse 6. CAD status post Cardiac Cath 09/26/11 7. GERD continue PPI 8. Hypertension Mild uncontrol. 9. Right and left hip arthroplasty 10. Brain Hemorrhage status post fall 02/14/16 11. Hypothyroidism her Daughter asking for follow up of thyroid function 12. Hyperlipidemia continue home medicines 13. Chronic Hyponatremia will continue Sodium tablets increased to Twice a day and following. re started on IV fluids. following laboratory 14. Rhabdomyolysis improving, will follow in am tomorrow. DVT prophylaxis SCDs Code Status Full Code Discussed Condition With Patient in the room, her Daughter present in the room. Consult for Dietitian, Added Ensure Follow CT Chest and laboratory in am tomorrow. Discharge Planning Expected in one to two days. Arnulfo Grimes MD Oct 23, 2016 08:00 Arnulfo Grimes MD Oct 23, 2016 08:00
[2016-10-23] MEDS: RESP: BUDESONIDE 0.5 MG/2 ML NEB NEB SCH ×2 (08:16→20:37)
[2016-10-23] MEDS: guaiFENesin E.R. 600 MG TAB PO SCH ×2 (08:48→22:05)
[2016-10-23] MEDS: AMIODARONE 200 MG TAB PO SCH (08:49)
[2016-10-23] MEDS: LEVOTHYROXINE SODIUM 50 MCG TAB PO SCH (08:49)
[2016-10-23] MEDS: SODIUM CHLORIDE 1 GRAM TAB PO SCH ×2 (08:49→22:06)
[2016-10-23] MEDS: LORATADINE 10 MG TAB PO SCH (08:50)
[2016-10-23] MEDS: CALCIUM/VITAMIN D 250 MG/125 U TAB PO SCH ×2 (08:50→22:06)
[2016-10-23] MEDS: LISINOPRIL 5 MG TAB PO SCH (08:50)
[2016-10-23] MEDS: PANTOPRAZOLE SOD 40 MG DELAYED RELEASE TAB PO SCH (08:50)
[2016-10-23] MEDS: METOPROLOL TARTRATE 25 MG TAB PO SCH ×2 (08:51→22:05)
[2016-10-23] MEDS: CHOLECALCIFEROL (VIT D3) 1000 UNIT TAB PO SCH (08:51)
[2016-10-23] MEDS: FLUTICASONE PROPIONATE 50 MCG/ACT 16 GM NASAL SPRAY EACH NARE SCH ×2 (08:51→22:09)
[2016-10-23] MEDS: ASPIRIN 81 MG CHEW TAB CHEW SCH (08:52)
[2016-10-23] MEDS: SODIUM CHLORIDE 0.9% FLUSH 10 ML FLUSH IV FLUSH SCH ×2 (08:53→22:09)
[2016-10-23 09:39] LABS: BICARBONATE 27.5 MEQ/L (21.0-32.0); POTASSIUM 3.9 MEQ/L (3.5-5.1)
[2016-10-23] MEDS ORDERED: LISINOPRIL 5 MG TAB PO ONE (14:45)
[2016-10-23] MEDS: AZITHROMYCIN INJ 500 MG in SODIUM CHLOR 0.9% 250 ML INJ 250 ML IV SCH (16:24)
[2016-10-23] MEDS: cefTRIAXone INJ 1,000 MG in SODIUM CHLORIDE 0.9% INJ 100 ML IV SCH (16:24)
[2016-10-23] MEDS: SODIUM CHLOR 0.9% 1000 ML INJ 1,000 ML IV SCH (16:26)
[2016-10-23] MEDS ORDERED: IOHEXOL 350 MG/ML 10 ML VIAL (for RAD DIAG) IV ONE (17:28)
--- NOTE | 2016-10-23 17:38 | RADRPT ---
EXAM DATE/TIME: 10/23/2016 17:19 [facility] COMPARISON: No previous studies available for comparison. INDICATIONS : Shortness of breath with cough. IV CONTRAST: 70 cc Omnipaque 350 (iohexol) IV RADIATION DOSE: 8.70 CTDIvol (mGy) MEDICAL HISTORY : Cardiovascular disease. Hypertension. Gastroesophageal reflux disease. SURGICAL HISTORY : Cholecystectomy. Pacemaker. ENCOUNTER: Initial ACUITY: 2 days PAIN SCALE: 6/10 LOCATION: Bilateral chest TECHNIQUE: Volumetric scanning of the chest was performed. Using automated exposure control and adjustment of t mA and/or kV according to patient size, radiation dose was kept as low as reasonably achievable to obtain optimal diagnostic quality images. FINDINGS: There is groundglass opacity involving bilateral upper lobes, parts of the right middle lobe left low er lobe. There is no pleural effusion on the right, however there is a tiny effusion on the left. N o appreciable pathological adenopathy is seen within the mediastinum. There is a tiny nodule within t he left adrenal gland which measures 1.3 cm in size probably an adenoma. Multiple old rib fractures a re seen. IMPRESSION: 1. Groundglass opacities in the lungs most likely inflammatory, however nonspecific. 2. Probable left adrenal adenoma. Juan Alvarado MD on October 23, 2016 at 17:33 Board Certified Radiologist. This report was verified electronically.
[2016-10-24] VITALS (8 sets, daily range): BP systolic 128–172; BP diastolic 55–91; PULSE 81–134; RESP 17–18; TEMP 97.2–98.1; O2SAT 90–96
[2016-10-24] MEDS: RESP: IPRATROPIUM 0.5 MG/2.5 ML NEB NEB SCH ×6 (00:13→20:53)
[2016-10-24] MEDS: DOCUSATE SODIUM 100 MG CAP PO SCH ×2 (06:31→17:06)
[2016-10-24] MEDS: SODIUM CHLOR 0.9% 1000 ML INJ 1,000 ML IV SCH (06:31)
[2016-10-24] MEDS: BENZONATATE 100 MG CAP PO PRN ×3 (06:31→23:02)
[2016-10-24] MEDS: RESP: BUDESONIDE 0.5 MG/2 ML NEB NEB SCH ×2 (08:37→20:53)
[2016-10-24 09:00] LABS: BICARBONATE 27.7 MEQ/L (21.0-32.0); MAGNESIUM 2.2 MG/DL (1.5-2.5); POTASSIUM 3.6 MEQ/L (3.5-5.1)
[2016-10-24] MEDS ORDERED: LISINOPRIL 20 MG TAB PO SCH (09:00)
[2016-10-24] MEDS ORDERED: LISINOPRIL 10 MG TAB PO SCH (09:00)
[2016-10-24 09:18] LABS: CKMB 6.4 NG/ML (0.5-3.6)
[2016-10-24] MEDS: FLUTICASONE PROPIONATE 50 MCG/ACT 16 GM NASAL SPRAY EACH NARE SCH ×2 (09:28→20:33)
[2016-10-24] MEDS: SODIUM CHLORIDE 0.9% FLUSH 10 ML FLUSH IV FLUSH SCH ×2 (09:28→20:32)
[2016-10-24] MEDS: ASPIRIN 81 MG CHEW TAB CHEW SCH (09:29)
[2016-10-24] MEDS: SODIUM CHLORIDE 1 GRAM TAB PO SCH ×2 (09:29→20:31)
[2016-10-24] MEDS: guaiFENesin E.R. 600 MG TAB PO SCH ×2 (09:29→20:31)
[2016-10-24] MEDS: LEVOTHYROXINE SODIUM 50 MCG TAB PO SCH (09:29)
[2016-10-24] MEDS: LORATADINE 10 MG TAB PO SCH (09:29)
[2016-10-24] MEDS: CHOLECALCIFEROL (VIT D3) 1000 UNIT TAB PO SCH (09:29)
[2016-10-24] MEDS: AMIODARONE 200 MG TAB PO SCH (09:29)
[2016-10-24] MEDS: CALCIUM/VITAMIN D 250 MG/125 U TAB PO SCH ×2 (09:30→20:31)
[2016-10-24] MEDS: METOPROLOL TARTRATE 25 MG TAB PO SCH ×2 (09:30→20:32)
[2016-10-24] MEDS: PANTOPRAZOLE SOD 40 MG DELAYED RELEASE TAB PO SCH (09:30)
[2016-10-24] MEDS ORDERED: PILL SPLITTER OTHER PRN (09:45)
[2016-10-24] MEDS ORDERED: FUROSEMIDE 40 MG/4 ML VIAL IV PUSH ONE (14:45)
[2016-10-24] MEDS ORDERED: POTASSIUM CHLORIDE 20 MEQ CONTROLLED RELEASE TAB PO ONE (14:45)
[2016-10-24] MEDS: AZITHROMYCIN INJ 500 MG in SODIUM CHLOR 0.9% 250 ML INJ 250 ML IV SCH (15:23)
[2016-10-24] MEDS: cefTRIAXone INJ 1,000 MG in SODIUM CHLORIDE 0.9% INJ 100 ML IV SCH (15:24)
[2016-10-24] MEDS ORDERED: METOPROLOL TARTRATE 25 MG TAB PO ONE (16:15)
--- NOTE | 2016-10-24 16:20 | HHI.PR ---
Subjective Remarks This is a pleasant 86 y/o Female who was brought in from local Urgent care, for management of possible Pneumonia as per patient she has one week of worsening cough with shortness of breath, expiratory wheezing, some fever and chills, denied Chest pain, had sensation of Cold head and chest, denied headache, sore throat, ear pain, or other upper respiratory symptoms. Patient has no history of COPD or lung disease in the past. Patient does have a history of A. fib and has a pacemaker. Patient denies abdominal pain, nausea, vomiting , or diarrhea. Patient is allergic to anesthesia, Biaxin, codeine, lactose, morphine, Tussionex, and Talwin. as we know the patient has Hypertension, Atrial Fibrillation, Hyperlipidemia, subarachnoid hemorrhage, Anxiety disorder, Hypothyroidism, GERD, had Accelerated Hypertension in the past. seen in Emergency room in the presence of nurse Miss Salvador and her daughter Mrs. Ce Munoz,she states her mother is been dealing with Allergic symptoms for one month but is worse since Sunday meaning six days ago. 10/22: Improving Hyponatremia to 132 and Potassium today 3.1 replaced, she is active and no need for Physical Therapy. 10/23: Seen in her bedroom in the presence of her Daughter her laboratory was reviewed, she is not feeling well continue with cough not improving, also not able to eat well, added Ensure she uses Chocolate, asked for CT Chest. 10/24: Patient Improving her Mood, but her Lung has some crackles, her Daughter in the room, all questions answered, has some ground glass opacities, asked for fire fighting equipment specialist consult, has tachycardia increased dosages of Beta Blockers. Objective Vital Signs Date Time Temp Pulse Resp B/P Pulse Ox O2 Delivery O2 Flow Rate FiO2 10/24/16 12:03 97.9 121 18 144/84 90 10/24/16 12:03 97.2 134 18 153/67 95 10/24/16 09:44 129 10/24/16 09:44 Nasal Cannula 2.00 10/24/16 08:40 95 Nasal Cannula 2.00 10/24/16 04:00 97.6 112 18 133/55 96 10/24/16 00:10 97.4 90 18 172/87 93 10/23/16 21:58 Nasal Cannula 2.00 10/23/16 20:47 97.4 83 18 164/72 95 10/23/16 20:37 98 Nasal Cannula 2.00 10/23/16 20:31 75 10/23/16 16:43 96 Nasal Cannula 2.00 I/O 10/23/16 10/23/16 10/23/16 10/24/16 10/24/16 10/24/16 07:00 15:00 23:00 07:00 15:00 23:00 Intake Total 240 ml 600 ml 810 ml 517 ml Balance 240 ml 600 ml 810 ml 517 ml Intake Oral 240 ml 600 ml IV Total 810 ml 517 ml # Voids 3 9 2 # Bowel Movements 0 0 Result Diagram: 10/22/16 0334 10/24/16 0724 Imaging Last Impressions Chest X-Ray 10/21/16 1528 Signed Impressions: Service Date/Time: Friday, October 21, 2016 15:54 - CONCLUSION: 1. Minimal basilar atelectasis or scarring. No effusion or pneumothorax. Elevated right hemidiaphragm. Edin Johnston MD Procedures No procedures performed. Other Results Laboratory Tests Test 10/21/16 10/21/16 10/21/16 10/22/16 13:24 15:35 15:56 03:34 B-Type Natriuretic Peptide 239 PG/ML Lactic Acid Level 1.0 mmol/L Total Bilirubin 0.4 MG/DL Aspartate Amino Transf 47 U/L (AST/SGOT) Alanine Aminotransferase 40 U/L (ALT/SGPT) Alkaline Phosphatase 80 U/L Total Protein 7.2 GM/DL Albumin 3.7 GM/DL Urine Color YELLOW Urine Turbidity HAZY Urine pH 6.5 Urine Specific Epes 1.010 Urine Protein 100 mg/dL Urine Glucose (UA) NEG mg/dL Urine Ketones TRACE mg/dL Urine Occult Blood SMALL Urine Nitrite NEG Urine Bilirubin NEG Urine Urobilinogen LESS THAN 2.0 MG/DL Urine Leukocyte Esterase MOD Urine RBC 5 /hpf Urine WBC 40 /hpf Urine Squamous Epithelial 2 /hpf Cells Urine Bacteria OCC /hpf Urine Mucus FEW /lpf Microscopic Urinalysis Comment CULTURE INDICATED White Blood Count 10.8 TH/MM3 Red Blood Count 4.19 MIL/MM3 Hemoglobin 12.9 GM/DL Hematocrit 37.2 % Mean Corpuscular Volume 88.9 FL Mean Corpuscular Hemoglobin 30.9 PG Mean Corpuscular Hemoglobin 34.7 % Concent Red Cell Distribution Width 13.4 % Platelet Count 171 TH/MM3 Mean Platelet Volume 7.1 FL Neutrophils (%) (Auto) 96.9 % Lymphocytes (%) (Auto) 1.9 % Monocytes (%) (Auto) 1.1 % Eosinophils (%) (Auto) 0.0 % Basophils (%) (Auto) 0.1 % Neutrophils # (Auto) 10.5 TH/MM3 Lymphocytes # (Auto) 0.2 TH/MM3 Monocytes # (Auto) 0.1 TH/MM3 Eosinophils # (Auto) 0.0 TH/MM3 Basophils # (Auto) 0.0 TH/MM3 CBC Comment DIFF FINAL Differential Comment Prothrombin Time 10.7 SEC Prothromb Time International 1.0 RATIO Ratio Hemoglobin A1c 5.5 % Troponin I 0.02 NG/ML Triglycerides Level 73 MG/DL Cholesterol Level 157 MG/DL LDL Cholesterol 79 MG/DL HDL Cholesterol 63.1 MG/DL Cholesterol/HDL Ratio 2.48 RATIO Free Thyroxine 1.20 NG/DL Thyroid Stimulating Hormone 1.350 uIU/ML 3rd Gen Test 10/24/16 07:24 Sodium Level 131 MEQ/L Potassium Level 3.6 MEQ/L Chloride Level 95 MEQ/L Carbon Dioxide Level 27.7 MEQ/L Anion Gap 8 MEQ/L Blood Urea Nitrogen 8 MG/DL Creatinine 0.49 MG/DL Estimat Glomerular Filtration 119 ML/MIN Rate Random Glucose 105 MG/DL Calcium Level 8.6 MG/DL Phosphorus Level 2.2 MG/DL Magnesium Level 2.2 MG/DL Total Creatine Kinase 217 U/L Creatine Kinase MB 6.4 NG/ML Creatine Kinase MB % 2.9 % Objective Remarks GENERAL: No acute distress. but has Cough. SKIN: Warm and dry. Normal color. Normal turgor. HEAD: Atraumatic. Normocephalic. EYES: Pupils equal and round. No scleral icterus. No injection or drainage. ENT: No nasal bleeding or discharge. NECK: Trachea midline. No JVD. Neck is supple nontender. CARDIOVASCULAR: Regular rate and rhythm. No murmurs gallops or rubs appreciated. RESPIRATORY: Decreased breath sounds bilateral, No Wheezing and has some crackles on both bases GASTROINTESTINAL: Abdomen soft, non-tender, nondistended. Hepatic and splenic margins not palpable. MUSCULOSKELETAL: Extremities without clubbing, cyanosis, or edema. NEUROLOGICAL: Awake and alert. No obvious cranial nerve deficits. PSYCHIATRIC: Appropriate mood and affect; insight and judgment normal. Medications and IVs Current Medications Medications (Trade) Dose Ordered Sig/Anastasia Route Start Time Stop Time Status Last Admin (NS Flush) 2 ml UNSCH PRN IVF 10/21/16 15:30 (Cordarone) 100 mg DAILY PO 10/22/16 09:00 10/24/16 09:29 (Aspirin Chew) 81 mg DAILY CHEW 10/22/16 09:00 10/24/16 09:29 (Flonase Magnus Spr) 1 spray BID EACH NARE 10/21/16 21:00 10/24/16 09:28 (Synthroid) 50 mcg DAILY PO 10/22/16 09:00 10/24/16 09:29 (Ativan) 0.5 mg DAILY PRN PO 10/21/16 17:00 (Lopressor) 12.5 mg BID PO 10/21/16 21:00 10/24/16 09:30 (Oscal-D 250-125) 500 mg BID PO 10/21/16 21:00 10/24/16 09:30 (Vitamin D3) 1,000 units DAILY PO 10/22/16 09:00 10/24/16 09:29 (NS Flush) 2 ml UNSCH PRN IV FLUSH 10/21/16 17:00 (NS Flush) 2 ml BID IV FLUSH 10/21/16 21:00 10/23/16 22:09 (Tylenol) 650 mg Q4H PRN PO 10/21/16 17:00 10/23/16 18:52 (Zofran Inj) 4 mg Q6H PRN IVP 10/21/16 17:00 (Dulcolax Supp) 10 mg DAILY PRN RECTAL 10/21/16 17:00 (Colace) 100 mg Q12H PO 10/21/16 17:00 10/24/16 06:31 Naloxone HCl 0.4 mg 0.4 mg UNSCH PRN IV 10/21/16 17:00 Ceftriaxone Sodium 1000 mg/ Sodium Chloride 100 ml @ 200 mls/hr Q24H IV 10/22/16 15:00 10/24/16 15:24 (Zithromax Inj/ NS 250 ml Inj) 250 ml @ 250 mls/hr Q24H IV 10/22/16 15:00 10/24/16 15:23 (Mucinex Er) 600 mg BID PO 10/21/16 21:00 10/24/16 09:29 (Protonix) 40 mg DAILY PO 10/22/16 09:00 10/24/16 09:30 (Claritin) 5 mg DAILY PO 10/21/16 18:00 10/24/16 09:29 (Tessalon) 200 mg TID PRN PO 10/23/16 05:45 10/24/16 15:23 (Sodium Chloride) 1 gm BID PO 10/23/16 21:00 10/24/16 09:29 (Prinivil) 20 mg DAILY PO 10/24/16 09:00 10/24/16 09:39 (Pill Splitter) 1 ea UNSCH PRN OTHER 10/24/16 09:45 A/P Assessment and Plan 1. SIRS will follow, associated Bronchitis, but no major changes on CXR, started on Ceftriaxone, Azithromycin, cultures negative, Influenza A and B antigen negative, continue Bronchodilator Mucolytic and Incentive spirometry. Steroids continued. CT chest demonstrates Ground Glass Opacities, Consult fire fighting equipment specialist, Lasix one dose and discontinue IV fluids. 2. Probable Volume Overload given one dose of Lasix 40 mg and removed IV fluids. 3. PAF with status post Pacemaker placement. increased heart rate increased Beta Tony. 4. Anxiety disorder to continue Home medicines, stable. 5. Mitral valve prolapse 6. CAD status post Cardiac Cath 09/26/11 7. GERD continue PPI 8. Hypertension Uncontrolled increased Metoprolol to 25 mg BID. 9. Right and left hip arthroplasty 10. Brain Hemorrhage status post fall 02/14/16 11. Hypothyroidism continue Hormonal replacement. 12. Hyperlipidemia continue home medicines 13. Chronic Hyponatremia Improving. 14. Rhabdomyolysis Improving. 15. OA by history DVT prophylaxis SCDs Code Status Full Code Discussed Condition With Patient in the room, her Daughter present in the room. Discharge Planning Expected in one to two days. Arnulfo Grimes MD Oct 24, 2016 16:20
[2016-10-25] VITALS (11 sets, daily range): BP systolic 128–195; BP diastolic 70–88; PULSE 72–88; RESP 18–22; TEMP 97.3–98; O2SAT 93–97
[2016-10-25] MEDS: RESP: IPRATROPIUM 0.5 MG/2.5 ML NEB NEB SCH ×5 (00:09→19:05)
[2016-10-25] MEDS: DOCUSATE SODIUM 100 MG CAP PO SCH ×2 (04:19→18:04)
[2016-10-25] MEDS: BENZONATATE 100 MG CAP PO PRN (04:19)
--- NOTE | 2016-10-25 08:26 | HHI.PR ---
Subjective Remarks This is a pleasant 86 y/o Female who was brought in from local Urgent care, for management of possible Pneumonia as per patient she has one week of worsening cough with shortness of breath, expiratory wheezing, some fever and chills, denied Chest pain, had sensation of Cold head and chest, denied headache, sore throat, ear pain, or other upper respiratory symptoms. Patient has no history of COPD or lung disease in the past. Patient does have a history of A. fib and has a pacemaker. Patient denies abdominal pain, nausea, vomiting , or diarrhea. Patient is allergic to anesthesia, Biaxin, codeine, lactose, morphine, Tussionex, and Talwin. as we know the patient has Hypertension, Atrial Fibrillation, Hyperlipidemia, subarachnoid hemorrhage, Anxiety disorder, Hypothyroidism, GERD, had Accelerated Hypertension in the past. seen in Emergency room in the presence of nurse Madeleine and her daughter Mrs. Ce Munoz,she states her mother is been dealing with Allergic symptoms for one month but is worse since Sunday meaning six days ago. 10/22: Improving Hyponatremia to 132 and Potassium today 3.1 replaced, she is active and no need for Physical Therapy. 10/23: Seen in her bedroom in the presence of her Daughter her laboratory was reviewed, she is not feeling well continue with cough not improving, also not able to eat well, added Ensure she uses Chocolate, asked for CT Chest. 10/24: Patient Improving her Mood, but her Lung has some crackles, her Daughter in the room, all questions answered, has some ground glass opacities, asked for specialist field engineer consult, has tachycardia increased dosages of Beta Blockers. 10/25: Seen in her bedroom in the presence of her Daughter Mrs. Encinas continue with Hypertension adjusted medicines, Consult Cardiology continue with Tachycardia, has Pacemaker placed. no Nausea, vomit or diarrhea not yet seen by specialists, continue with good mood improving clinically. Objective Vital Signs Date Time Temp Pulse Resp B/P Pulse Ox O2 Delivery O2 Flow Rate FiO2 10/25/16 05:59 84 184/87 96 174/78 10/25/16 01:48 97.8 72 18 128/70 97 10/25/16 00:10 95 Nasal Cannula 2.00 10/24/16 20:33 Room Air 10/24/16 19:53 98.1 83 18 132/82 95 10/24/16 19:49 81 10/24/16 16:00 97.3 133 17 128/91 92 10/24/16 12:03 97.9 121 18 144/84 90 10/24/16 12:03 97.2 134 18 153/67 95 10/24/16 09:44 129 10/24/16 09:44 Nasal Cannula 2.00 10/24/16 08:40 95 Nasal Cannula 2.00 I/O 10/24/16 10/24/16 10/24/16 10/25/16 10/25/16 10/25/16 07:00 15:00 23:00 07:00 15:00 23:00 Intake Total 517 ml 876 ml Balance 517 ml 876 ml IV Total 517 ml 876 ml Result Diagram: 10/22/16 0334 10/24/16 0724 Imaging Last Impressions Chest X-Ray 10/21/16 1528 Signed Impressions: Service Date/Time: Friday, October 21, 2016 15:54 - CONCLUSION: 1. Minimal basilar atelectasis or scarring. No effusion or pneumothorax. Elevated right hemidiaphragm. Edin Johnston MD Procedures No procedures performed. Other Results Laboratory Tests Test 10/21/16 10/21/16 10/21/16 10/22/16 13:24 15:35 15:56 03:34 B-Type Natriuretic Peptide 239 PG/ML Lactic Acid Level 1.0 mmol/L Total Bilirubin 0.4 MG/DL Aspartate Amino Transf 47 U/L (AST/SGOT) Alanine Aminotransferase 40 U/L (ALT/SGPT) Alkaline Phosphatase 80 U/L Total Protein 7.2 GM/DL Albumin 3.7 GM/DL Urine Color YELLOW Urine Turbidity HAZY Urine pH 6.5 Urine Specific Sod 1.010 Urine Protein 100 mg/dL Urine Glucose (UA) NEG mg/dL Urine Ketones TRACE mg/dL Urine Occult Blood SMALL Urine Nitrite NEG Urine Bilirubin NEG Urine Urobilinogen LESS THAN 2.0 MG/DL Urine Leukocyte Esterase MOD Urine RBC 5 /hpf Urine WBC 40 /hpf Urine Squamous Epithelial 2 /hpf Cells Urine Bacteria OCC /hpf Urine Mucus FEW /lpf Microscopic Urinalysis Comment CULTURE INDICATED White Blood Count 10.8 TH/MM3 Red Blood Count 4.19 MIL/MM3 Hemoglobin 12.9 GM/DL Hematocrit 37.2 % Mean Corpuscular Volume 88.9 FL Mean Corpuscular Hemoglobin 30.9 PG Mean Corpuscular Hemoglobin 34.7 % Concent Red Cell Distribution Width 13.4 % Platelet Count 171 TH/MM3 Mean Platelet Volume 7.1 FL Neutrophils (%) (Auto) 96.9 % Lymphocytes (%) (Auto) 1.9 % Monocytes (%) (Auto) 1.1 % Eosinophils (%) (Auto) 0.0 % Basophils (%) (Auto) 0.1 % Neutrophils # (Auto) 10.5 TH/MM3 Lymphocytes # (Auto) 0.2 TH/MM3 Monocytes # (Auto) 0.1 TH/MM3 Eosinophils # (Auto) 0.0 TH/MM3 Basophils # (Auto) 0.0 TH/MM3 CBC Comment DIFF FINAL Differential Comment Prothrombin Time 10.7 SEC Prothromb Time International 1.0 RATIO Ratio Hemoglobin A1c 5.5 % Troponin I 0.02 NG/ML Triglycerides Level 73 MG/DL Cholesterol Level 157 MG/DL LDL Cholesterol 79 MG/DL HDL Cholesterol 63.1 MG/DL Cholesterol/HDL Ratio 2.48 RATIO Free Thyroxine 1.20 NG/DL Thyroid Stimulating Hormone 1.350 uIU/ML 3rd Gen Test 10/24/16 07:24 Sodium Level 131 MEQ/L Potassium Level 3.6 MEQ/L Chloride Level 95 MEQ/L Carbon Dioxide Level 27.7 MEQ/L Anion Gap 8 MEQ/L Blood Urea Nitrogen 8 MG/DL Creatinine 0.49 MG/DL Estimat Glomerular Filtration 119 ML/MIN Rate Random Glucose 105 MG/DL Calcium Level 8.6 MG/DL Phosphorus Level 2.2 MG/DL Magnesium Level 2.2 MG/DL Total Creatine Kinase 217 U/L Creatine Kinase MB 6.4 NG/ML Creatine Kinase MB % 2.9 % Objective Remarks GENERAL: No acute distress. but has Cough. SKIN: Warm and dry. Normal color. Normal turgor. HEAD: Atraumatic. Normocephalic. EYES: Pupils equal and round. No scleral icterus. No injection or drainage. ENT: No nasal bleeding or discharge. NECK: Trachea midline. No JVD. Neck is supple nontender. CARDIOVASCULAR: Regular rate and rhythm. No murmurs gallops or rubs appreciated. RESPIRATORY: Decreased breath sounds bilateral, No Wheezing and no crackles. GASTROINTESTINAL: Abdomen soft, non-tender, nondistended. Hepatic and splenic margins not palpable. MUSCULOSKELETAL: Extremities without clubbing, cyanosis, or edema. NEUROLOGICAL: Awake and alert. No obvious cranial nerve deficits. PSYCHIATRIC: Appropriate mood and affect; insight and judgment normal. Medications and IVs Current Medications Medications (Trade) Dose Ordered Sig/Anastasia Route Start Time Stop Time Status Last Admin (Cordarone) 100 mg DAILY PO 10/22/16 09:00 10/24/16 09:29 (Aspirin Chew) 81 mg DAILY CHEW 10/22/16 09:00 10/24/16 09:29 (Flonase Magnus Spr) 1 spray BID EACH NARE 10/21/16 21:00 10/24/16 20:33 (Synthroid) 50 mcg DAILY PO 10/22/16 09:00 10/24/16 09:29 (Ativan) 0.5 mg DAILY PRN PO 10/21/16 17:00 (Oscal-D 250-125) 500 mg BID PO 10/21/16 21:00 10/24/16 20:31 (Vitamin D3) 1,000 units DAILY PO 10/22/16 09:00 10/24/16 09:29 (NS Flush) 2 ml UNSCH PRN IV FLUSH 10/21/16 17:00 (NS Flush) 2 ml BID IV FLUSH 10/21/16 21:00 10/24/16 20:32 (Tylenol) 650 mg Q4H PRN PO 10/21/16 17:00 10/23/16 18:52 (Zofran Inj) 4 mg Q6H PRN IVP 10/21/16 17:00 (Dulcolax Supp) 10 mg DAILY PRN RECTAL 10/21/16 17:00 (Colace) 100 mg Q12H PO 10/21/16 17:00 10/25/16 04:19 Naloxone HCl 0.4 mg 0.4 mg UNSCH PRN IV 10/21/16 17:00 Ceftriaxone Sodium 1000 mg/ Sodium Chloride 100 ml @ 200 mls/hr Q24H IV 10/22/16 15:00 10/24/16 15:24 (Zithromax Inj/ NS 250 ml Inj) 250 ml @ 250 mls/hr Q24H IV 10/22/16 15:00 10/24/16 15:23 (Mucinex Er) 600 mg BID PO 10/21/16 21:00 10/24/16 20:31 (Protonix) 40 mg DAILY PO 10/22/16 09:00 10/24/16 09:30 (Claritin) 5 mg DAILY PO 10/21/16 18:00 10/24/16 09:29 (Tessalon) 200 mg TID PRN PO 10/23/16 05:45 10/25/16 04:19 (Sodium Chloride) 1 gm BID PO 10/23/16 21:00 10/24/16 20:31 (Pill Splitter) 1 ea UNSCH PRN OTHER 10/24/16 09:45 (Lopressor) 25 mg BID PO 10/24/16 21:00 10/24/16 20:32 (Prinivil) 10 mg DAILY PO 10/25/16 09:00 A/P Assessment and Plan 1. SIRS will follow, associated Bronchitis, but no major changes on CXR, started on Ceftriaxone, Azithromycin, cultures negative, Influenza A and B antigen negative, continue Bronchodilator Mucolytic and Incentive spirometry. Steroids continued. CT chest demonstrates Ground Glass Opacities, Consult specialist field engineer, given Lasix yesterday continue with Cough. 2. OA by history 3. PAF with status post Pacemaker placement. increased heart rate adjusted Beta Blockers. 4. Anxiety disorder to continue Home medicines, stable. 5. Mitral valve prolapse 6. CAD status post Cardiac Cath 09/26/11 7. GERD continue PPI 8. Hypertension Uncontrolled increased Metoprolol to 50 mg BID. 9. Right and left hip arthroplasty 10. Brain Hemorrhage status post fall 02/14/16 11. Hypothyroidism continue Hormonal replacement. 12. Hyperlipidemia continue home medicines 13. Chronic Hyponatremia Improving. 14. Rhabdomyolysis Improving. DVT prophylaxis SCDs Code Status Full Code Discussed Condition With Patient in the room, her Daughter present in the room. Discharge Planning Expected in one to two days. Arnulfo Grimes MD Oct 25, 2016 08:26
[2016-10-25] MEDS: FLUTICASONE PROPIONATE 50 MCG/ACT 16 GM NASAL SPRAY EACH NARE SCH ×2 (08:48→21:00)
[2016-10-25] MEDS: ASPIRIN 81 MG CHEW TAB CHEW SCH (08:49)
[2016-10-25] MEDS: AMIODARONE 200 MG TAB PO SCH (08:49)
[2016-10-25] MEDS: LEVOTHYROXINE SODIUM 50 MCG TAB PO SCH (08:49)
[2016-10-25] MEDS: PANTOPRAZOLE SOD 40 MG DELAYED RELEASE TAB PO SCH (08:49)
[2016-10-25] MEDS: CHOLECALCIFEROL (VIT D3) 1000 UNIT TAB PO SCH (08:49)
[2016-10-25] MEDS: SODIUM CHLORIDE 1 GRAM TAB PO SCH ×2 (08:49→21:00)
[2016-10-25] MEDS: LORATADINE 10 MG TAB PO SCH (08:49)
[2016-10-25] MEDS: SODIUM CHLORIDE 0.9% FLUSH 10 ML FLUSH IV FLUSH SCH ×2 (08:50→21:00)
[2016-10-25] MEDS: CALCIUM/VITAMIN D 250 MG/125 U TAB PO SCH ×2 (08:50→21:30)
[2016-10-25] MEDS: LISINOPRIL 10 MG TAB PO SCH (08:50)
[2016-10-25] MEDS: guaiFENesin E.R. 600 MG TAB PO SCH ×2 (08:50→21:30)
[2016-10-25] MEDS: METOPROLOL TARTRATE 25 MG TAB PO SCH (08:50)
[2016-10-25] MEDS: RESP: BUDESONIDE 0.5 MG/2 ML NEB NEB SCH ×2 (09:41→19:06)
[2016-10-25] MEDS ORDERED: METOPROLOL TARTRATE 25 MG TAB PO ONE (12:15)
--- NOTE | 2016-10-25 14:25 | MB ---
cc: Leonardo LAKHANI M.D. DATE OF CONSULTATION: 10/25/2016 HISTORY OF PRESENT ILLNESS Ms. Restrepo is a 86-year-old white female who presented with cough, congestion and suspected community-acquired pneumonia. She does live in an [facility] in her own apartment but takes meals with other residents. There have been the usual respiratory illnesses at the facility but nothing unusual, according to her daughter. The patient has been here 4 days now, continues to have cough and congestion but she has had no fever. White count is normal at 10,000 and cultures including nasal wash for influenza and urine for Legionella have been negative. No sputum has been obtained. Blood cultures have been negative. She has been treated with Zithromax and Rocephin. She has had no chest pain or hemoptysis. Not particularly short of breath. Although she has never smoked she had 30-40 years of secondhand smoke exposure to her who was a heavy smoker. He has . She also has a history of hypertension, atrial fibrillation and a prior pacemaker. She had a fall last year with some intracranial bleeding. There is no residual effect of that apparently. She also has chronic gastroesophageal reflux disease but says she has not had any symptoms recently. No nocturnal reflux symptoms. Chronic hyponatremia. SOCIAL HISTORY Other than that noted above, no significant alcohol intake. She does live in assisted living at this point. ALLERGIES Allergies listed in the medical record. MEDICATION Medicines are reviewed in the EMR. REVIEW OF SYSTEMS No nausea, vomiting, abdominal pain, change in bowel habit. She did have increasing edema on presentation and does apparently have wide fluctuations in blood pressure. She presented at about 180/90. PHYSICAL EXAMINATION GENERAL: Awake, alert, no distress. VITAL SIGNS: 97 degrees, blood pressure is high as 190/80 in the last 24 hours, currently 180/88, respirations 18-22 and saturation is 94-97% on 2 liters of oxygen. HEENT: Sclerae anicteric. Mucous membranes are moist. No adenopathy in the neck or supraclavicular region. Her neck veins are flat. CHEST: Chest is fairly clear. She has some minimal scattered congestion but no wheezing. No basilar rales. No moist rales. HEART: Regular rhythm. Soft systolic murmur. ABDOMEN: Abdomen is soft. No peripheral edema, cyanosis or clubbing. IMAGING STUDIES Chest CT reveals perihilar ground-glass densities with a little more infiltrate in the left side with a small effusion. DISCUSSION Ms. Restrepo presents with a probable respiratory infection, possibly pneumonia and some element of pulmonary edema. The perihilar ground-glass would be consistent with this. She is improving slowly but continues to have some cough, minimal congestion, no fever and white count has improved. I would continue this therapy the next 24-48 hours and monitor her. I am going to start her on b.i.d. prednisone for a couple of days and check a spirometry in light of the heavy secondhand smoke exposure in the past. She may have some underlying COPD. Further diagnostic and/or therapeutic intervention will depend on her response and ongoing clinical course. R. MD LAZARO Montes/JULIOCESAR /1:19 PM /1:59 PM
[2016-10-25] MEDS: AZITHROMYCIN INJ 500 MG in SODIUM CHLOR 0.9% 250 ML INJ 250 ML IV SCH (14:27)
[2016-10-25] MEDS: cefTRIAXone INJ 1,000 MG in SODIUM CHLORIDE 0.9% INJ 100 ML IV SCH (14:27)
[2016-10-25] MEDS: methylPREDNISolone SOD SUCC 125 MG/2 ML VIAL IV PUSH SCH (18:37)
[2016-10-25] MEDS: LORazepam 0.5 MG TAB PO PRN (18:37)
[2016-10-25] MEDS ORDERED: predniSONE 20 MG TAB PO SCH (21:00)
[2016-10-25] MEDS: METOPROLOL TARTRATE 50 MG TAB PO SCH (21:30)
--- NOTE | 2016-10-25 22:57 | MB ---
cc: ALVA FLORES DATE OF CONSULTATION 10/25/2016 HISTORY Ms. Restrepo is an 86-year-old white female, a patient of Dr. Fernandez with a recent history of shortness of breath and cough. She was diagnosed with and treated for pneumonia. She still complains of significant shortness of breath. She has minimal chest pressure. She has not had any peripheral edema, dizziness, lightheadedness or palpitations. PAST MEDICAL HISTORY Positive for: 1. Atrial fibrillation. 2. Mitral valve prolapse. 3. Anxiety disorder. 4. Coronary artery disease. 6. Hypertension. 7. Bilateral hip arthroplasty. 9. Brain hemorrhage after a fall in 02/2016. 10. Hypothyroidism. 11. Dyslipidemia. 12. 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 13. Osteoarthritis. 14. History of dual chamber pacemaker placement. 15. Cholecystectomy. 16. Cataract surgery. 17. Lung biopsy. MEDICATIONS Include: 1. Lansoprazole. 2. Aspirin. 3. Lisinopril. 4. Metoprolol. 5. Sodium chloride. 6. Amiodarone. 7. Levothyroxine. 8. Lorazepam. 9. Tylenol as needed. 10. Fluticasone. 11. Calcium citrate. 12. D3. 13. Glucosamine. ALLERGIES CODEINE, LACTOSE, TALWIN, BIAXIN, MORPHINE, TUSSIONEX. SOCIAL HISTORY The patient does not smoke. She does not drink alcohol. She lives in an [facility]. FAMILY HISTORY Negative for heart disease. REVIEW OF SYSTEMS Otherwise negative. PHYSICAL EXAMINATION VITAL SIGNS: Blood pressure 190/85, pulse 80 and regular. HEENT: Negative. 2+ carotid upstroke. No bruits. LUNGS: With a few rhonchi. HEART: Regular with no murmur, gallop or rub. ABDOMEN: Soft. No bruits. EXTREMITIES: Without edema. 2+ distal pulses. NEUROLOGICAL: Grossly nonfocal. EKG was reviewed and showed AV pacing. LABORATORY DATA Hemoglobin 12.9. Potassium 3.6. Creatinine 0.5. CK 632, 653, 217. Troponin 0.02. BNP 239. DIAGNOSES 1. Suspected pneumonia. 2. Possible chronic obstructive pulmonary disease. 3. Paroxysmal atrial fibrillation. 4. Status post dual chamber pacemaker placement. 5. Coronary artery disease. 6. Hypertension. 7. History of brain hemorrhage after a fall in 2016. 8. Dyslipidemia. DISPOSITION Ms. Restrepo has been treated for suspected pneumonia with antibiotics. Her heart rate is now normal in the 80s. Her pacemaker is functioning normally. We will continue her current medical program including beta shadi and antiarrhythmic therapy with amiodarone. I recommend to continue and titrate therapy for hypertension. I will follow her for cardiology during her hospitalization. She will see Dr. Fernandez, her primary data solutions architect, in his office after discharge. Alva Flores MD OQ/KK /7:12 PM /10:28 PM MTDD
[2016-10-26] VITALS (9 sets, daily range): BP systolic 155–200; BP diastolic 74–99; PULSE 70–116; RESP 18–20; TEMP 97.3–98.2; O2SAT 92–97
[2016-10-26] MEDS: DOCUSATE SODIUM 100 MG CAP PO SCH ×2 (05:00→18:01)
[2016-10-26] MEDS: methylPREDNISolone SOD SUCC 125 MG/2 ML VIAL IV PUSH SCH (05:28)
[2016-10-26 07:36] LABS: BICARBONATE 29.9 MEQ/L (21.0-32.0); POTASSIUM 3.2 MEQ/L (3.5-5.1)
[2016-10-26] MEDS: RESP: BUDESONIDE 0.5 MG/2 ML NEB NEB SCH ×2 (08:51→20:28)
[2016-10-26] MEDS: RESP: IPRATROPIUM 0.5 MG/2.5 ML NEB NEB SCH ×3 (08:51→20:28)
[2016-10-26] MEDS: PANTOPRAZOLE SOD 40 MG DELAYED RELEASE TAB PO SCH (09:10)
[2016-10-26] MEDS: METOPROLOL TARTRATE 50 MG TAB PO SCH ×2 (09:10→19:56)
[2016-10-26] MEDS: CHOLECALCIFEROL (VIT D3) 1000 UNIT TAB PO SCH (09:11)
[2016-10-26] MEDS: ASPIRIN 81 MG CHEW TAB CHEW SCH (09:11)
[2016-10-26] MEDS: CALCIUM/VITAMIN D 250 MG/125 U TAB PO SCH ×2 (09:11→19:56)
[2016-10-26] MEDS: LEVOTHYROXINE SODIUM 50 MCG TAB PO SCH (09:11)
[2016-10-26] MEDS: AMIODARONE 200 MG TAB PO SCH (09:11)
[2016-10-26] MEDS: SODIUM CHLORIDE 0.9% FLUSH 10 ML FLUSH IV FLUSH SCH ×2 (09:12→19:57)
[2016-10-26] MEDS: LISINOPRIL 10 MG TAB PO SCH (09:12)
[2016-10-26] MEDS: LORATADINE 10 MG TAB PO SCH (09:12)
[2016-10-26] MEDS: guaiFENesin E.R. 600 MG TAB PO SCH ×2 (09:12→19:56)
[2016-10-26] MEDS: FLUTICASONE PROPIONATE 50 MCG/ACT 16 GM NASAL SPRAY EACH NARE SCH ×2 (09:12→19:57)
[2016-10-26] MEDS: SODIUM CHLORIDE 1 GRAM TAB PO SCH ×2 (09:12→20:02)
--- NOTE | 2016-10-26 11:48 | HHI.PR ---
Subjective Remarks This is a pleasant 86 y/o Female who was brought in from local Urgent care, for management of possible Pneumonia as per patient she has one week of worsening cough with shortness of breath, expiratory wheezing, some fever and chills, denied Chest pain, had sensation of Cold head and chest, denied headache, sore throat, ear pain, or other upper respiratory symptoms. Patient has no history of COPD or lung disease in the past. Patient does have a history of A. fib and has a pacemaker. Patient denies abdominal pain, nausea, vomiting , or diarrhea. Patient is allergic to anesthesia, Biaxin, codeine, lactose, morphine, Tussionex, and Talwin. as we know the patient has Hypertension, Atrial Fibrillation, Hyperlipidemia, subarachnoid hemorrhage, Anxiety disorder, Hypothyroidism, GERD, had Accelerated Hypertension in the past. seen in Emergency room in the presence of nurse Madeleine and her daughter Mrs. Ce Munoz,she states her mother is been dealing with Allergic symptoms for one month but is worse since Sunday meaning six days ago. 10/22: Improving Hyponatremia to 132 and Potassium today 3.1 replaced, she is active and no need for Physical Therapy. 10/23: Seen in her bedroom in the presence of her Daughter her laboratory was reviewed, she is not feeling well continue with cough not improving, also not able to eat well, added Ensure she uses Chocolate, asked for CT Chest. 10/24: Patient Improving her Mood, but her Lung has some crackles, her Daughter in the room, all questions answered, has some ground glass opacities, asked for database management specialist consult, has tachycardia increased dosages of Beta Blockers. 10/25: Seen in her bedroom in the presence of her Daughter Mrs. Encinas continue with Hypertension adjusted medicines, Consult Cardiology continue with Tachycardia, has Pacemaker placed. good mood improving clinically. 10/26: Stable in her bedroom improving after Steroids started by database management specialist, will continue present care continue with uncontrolled blood pressure, but improving tachycardia, clinical rehab specialist following. Objective Vital Signs Date Time Temp Pulse Resp B/P Pulse Ox O2 Delivery O2 Flow Rate FiO2 10/26/16 08:53 94 Nasal Cannula 2.00 10/26/16 08:00 97.4 116 20 166/99 93 10/26/16 03:55 97.4 85 18 178/85 94 10/25/16 23:28 97.6 72 20 166/78 95 4/19/17 21:36 Nasal Cannula 2.00 10/25/16 20:05 98.0 86 20 189/87 94 10/25/16 19:05 95 Nasal Cannula 2.00 10/25/16 18:52 80 10/25/16 16:00 97.9 88 20 190/85 93 10/25/16 12:00 97.7 82 22 178/88 93 I/O 10/25/16 10/25/16 10/25/16 10/26/16 10/26/16 10/26/16 07:00 15:00 23:00 07:00 15:00 23:00 Intake Total 600 ml 240 ml 30 ml Output Total 125 ml 1050 ml Balance 600 ml 115 ml -1020 ml Intake Oral 600 ml 240 ml 30 ml Output Urine Total 125 ml 1050 ml # Voids 6 1 # Bowel Movements 0 1 Result Diagram: 10/22/16 0334 10/26/16 0634 Imaging Last Impressions Chest X-Ray 10/21/16 1528 Signed Impressions: Service Date/Time: Friday, October 21, 2016 15:54 - CONCLUSION: 1. Minimal basilar atelectasis or scarring. No effusion or pneumothorax. Elevated right hemidiaphragm. Edin Johnston MD Procedures No procedures performed. Other Results Laboratory Tests Test 10/22/16 10/24/16 10/26/16 03:34 07:24 06:34 White Blood Count 10.8 TH/MM3 Red Blood Count 4.19 MIL/MM3 Hemoglobin 12.9 GM/DL Hematocrit 37.2 % Mean Corpuscular Volume 88.9 FL Mean Corpuscular Hemoglobin 30.9 PG Mean Corpuscular Hemoglobin 34.7 % Concent Red Cell Distribution Width 13.4 % Platelet Count 171 TH/MM3 Mean Platelet Volume 7.1 FL Neutrophils (%) (Auto) 96.9 % Lymphocytes (%) (Auto) 1.9 % Monocytes (%) (Auto) 1.1 % Eosinophils (%) (Auto) 0.0 % Basophils (%) (Auto) 0.1 % Neutrophils # (Auto) 10.5 TH/MM3 Lymphocytes # (Auto) 0.2 TH/MM3 Monocytes # (Auto) 0.1 TH/MM3 Eosinophils # (Auto) 0.0 TH/MM3 Basophils # (Auto) 0.0 TH/MM3 CBC Comment DIFF FINAL Differential Comment Prothrombin Time 10.7 SEC Prothromb Time International 1.0 RATIO Ratio Hemoglobin A1c 5.5 % Troponin I 0.02 NG/ML Triglycerides Level 73 MG/DL Cholesterol Level 157 MG/DL LDL Cholesterol 79 MG/DL HDL Cholesterol 63.1 MG/DL Cholesterol/HDL Ratio 2.48 RATIO Free Thyroxine 1.20 NG/DL Thyroid Stimulating Hormone 1.350 uIU/ML 3rd Gen Phosphorus Level 2.2 MG/DL Total Creatine Kinase 217 U/L Creatine Kinase MB 6.4 NG/ML Creatine Kinase MB % 2.9 % Sodium Level 133 MEQ/L Potassium Level 3.2 MEQ/L Chloride Level 94 MEQ/L Carbon Dioxide Level 29.9 MEQ/L Anion Gap 9 MEQ/L Blood Urea Nitrogen 11 MG/DL Creatinine 0.52 MG/DL Estimat Glomerular Filtration 111 ML/MIN Rate Random Glucose 181 MG/DL Calcium Level 8.6 MG/DL Magnesium Level 2.0 MG/DL Objective Remarks GENERAL: No acute distress. but has Cough. SKIN: Warm and dry. Normal color. Normal turgor. HEAD: Atraumatic. Normocephalic. EYES: Pupils equal and round. No scleral icterus. No injection or drainage. ENT: No nasal bleeding or discharge. NECK: Trachea midline. No JVD. Neck is supple nontender. CARDIOVASCULAR: Regular rate and rhythm. No murmurs gallops or rubs appreciated. RESPIRATORY: Decreased breath sounds bilateral, No Wheezing and no crackles. GASTROINTESTINAL: Abdomen soft, non-tender, nondistended. Hepatic and splenic margins not palpable. MUSCULOSKELETAL: Extremities without clubbing, cyanosis, or edema. NEUROLOGICAL: Awake and alert. No obvious cranial nerve deficits. PSYCHIATRIC: Appropriate mood and affect; insight and judgment normal. Medications and IVs Current Medications Medications (Trade) Dose Ordered Sig/Ansatasia Route Start Time Stop Time Status Last Admin (Cordarone) 100 mg DAILY PO 10/22/16 09:00 10/26/16 09:11 (Aspirin Chew) 81 mg DAILY CHEW 10/22/16 09:00 10/26/16 09:11 (Flonase Magnus Spr) 1 spray BID EACH NARE 10/21/16 21:00 10/26/16 09:12 (Synthroid) 50 mcg DAILY PO 10/22/16 09:00 10/26/16 09:11 (Ativan) 0.5 mg DAILY PRN PO 10/21/16 17:00 10/25/16 18:37 (Oscal-D 250-125) 500 mg BID PO 10/21/16 21:00 10/26/16 09:11 (Vitamin D3) 1,000 units DAILY PO 10/22/16 09:00 10/26/16 09:11 (NS Flush) 2 ml UNSCH PRN IV FLUSH 10/21/16 17:00 (NS Flush) 2 ml BID IV FLUSH 10/21/16 21:00 10/26/16 09:12 (Tylenol) 650 mg Q4H PRN PO 10/21/16 17:00 10/23/16 18:52 (Zofran Inj) 4 mg Q6H PRN IVP 10/21/16 17:00 (Dulcolax Supp) 10 mg DAILY PRN RECTAL 10/21/16 17:00 (Colace) 100 mg Q12H PO 10/21/16 17:00 10/25/16 18:04 Naloxone HCl 0.4 mg 0.4 mg UNSCH PRN IV 10/21/16 17:00 Ceftriaxone Sodium 1000 mg/ Sodium Chloride 100 ml @ 200 mls/hr Q24H IV 10/22/16 15:00 10/25/16 14:27 (Zithromax Inj/ NS 250 ml Inj) 250 ml @ 250 mls/hr Q24H IV 10/22/16 15:00 10/25/16 14:27 (Mucinex Er) 600 mg BID PO 10/21/16 21:00 10/26/16 09:12 (Protonix) 40 mg DAILY PO 10/22/16 09:00 10/26/16 09:10 (Claritin) 5 mg DAILY PO 10/21/16 18:00 10/26/16 09:12 (Tessalon) 200 mg TID PRN PO 10/23/16 05:45 10/25/16 04:19 (Sodium Chloride) 1 gm BID PO 10/23/16 21:00 10/26/16 09:12 (Pill Splitter) 1 ea UNSCH PRN OTHER 10/24/16 09:45 (Prinivil) 10 mg DAILY PO 10/25/16 09:00 10/26/16 09:12 (Lopressor) 50 mg BID PO 10/25/16 21:00 10/26/16 09:10 (SoluMEDROL INJ) 60 mg Q12H IV PUSH 10/25/16 18:00 10/26/16 05:28 A/P Assessment and Plan 1. SIRS will follow, associated Bronchitis, but no major changes on CXR, started on Ceftriaxone, Azithromycin, cultures negative, Influenza A and B antigen negative, continue Bronchodilator Mucolytic and Incentive spirometry. Steroids continued. CT chest demonstrates Ground Glass Opacities, database management specialist following and started on Steroids improving condition. 2. OA by history 3. PAF with status post Pacemaker placement. increased heart rate adjusted Beta Blockers. 4. Anxiety disorder to continue Home medicines, stable. 5. Mitral valve prolapse 6. CAD status post Cardiac Cath 09/26/11 7. GERD continue PPI 8. Hypertension Uncontrolled adjusted medicines. 9. Right and left hip arthroplasty 10. Brain Hemorrhage status post fall 02/14/16 11. Hypothyroidism continue Hormonal replacement. 12. Hyperlipidemia continue home medicines 13. Chronic Hyponatremia Improving. 14. Rhabdomyolysis Improving. 15 UTI on antibiotics, urine culture negative. DVT prophylaxis SCDs Code Status Full Code Discussed Condition With Patient in the room, her Daughter present in the room. Discharge Planning Expected for tomorrow. Arnulfo Grimes MD Oct 26, 2016 11:48
[2016-10-26] MEDS ORDERED: POTASSIUM CHLOR 20 MEQ PREMIX 100 ML IV SCH (12:00)
[2016-10-26] MEDS ORDERED: POTASSIUM CHLORIDE 20 MEQ CONTROLLED RELEASE TAB PO ONE ×2 (13:30→15:30)
[2016-10-26] MEDS: AZITHROMYCIN INJ 500 MG in SODIUM CHLOR 0.9% 250 ML INJ 250 ML IV SCH (13:36)
[2016-10-26] MEDS: cefTRIAXone INJ 1,000 MG in SODIUM CHLORIDE 0.9% INJ 100 ML IV SCH (13:36)
[2016-10-26] MEDS: BENZONATATE 100 MG CAP PO PRN ×2 (15:12→22:56)
--- NOTE | 2016-10-26 18:58 | PD.CARD.PN ---
Subjective Subjective Remarks SOB improving, no CP, feels better, episodes of parox AF w RVR Objective Medications Current Medications Medications (Trade) Dose Ordered Sig/Anastasia Route Start Time Stop Time Status Last Admin (Cordarone) 100 mg DAILY PO 10/22/16 09:00 10/26/16 09:11 (Aspirin Chew) 81 mg DAILY CHEW 10/22/16 09:00 10/26/16 09:11 (Flonase Magnus Spr) 1 spray BID EACH NARE 10/21/16 21:00 10/26/16 09:12 (Synthroid) 50 mcg DAILY PO 10/22/16 09:00 10/26/16 09:11 (Ativan) 0.5 mg DAILY PRN PO 10/21/16 17:00 10/25/16 18:37 (Oscal-D 250-125) 500 mg BID PO 10/21/16 21:00 10/26/16 09:11 (Vitamin D3) 1,000 units DAILY PO 10/22/16 09:00 10/26/16 09:11 (NS Flush) 2 ml UNSCH PRN IV FLUSH 10/21/16 17:00 (NS Flush) 2 ml BID IV FLUSH 10/21/16 21:00 10/26/16 09:12 (Tylenol) 650 mg Q4H PRN PO 10/21/16 17:00 10/23/16 18:52 (Zofran Inj) 4 mg Q6H PRN IVP 10/21/16 17:00 (Dulcolax Supp) 10 mg DAILY PRN RECTAL 10/21/16 17:00 (Colace) 100 mg Q12H PO 10/21/16 17:00 10/26/16 18:01 Naloxone HCl 0.4 mg 0.4 mg UNSCH PRN IV 10/21/16 17:00 Ceftriaxone Sodium 1000 mg/ Sodium Chloride 100 ml @ 200 mls/hr Q24H IV 10/22/16 15:00 10/26/16 13:36 (Zithromax Inj/ NS 250 ml Inj) 250 ml @ 250 mls/hr Q24H IV 10/22/16 15:00 10/26/16 13:36 (Mucinex Er) 600 mg BID PO 10/21/16 21:00 10/26/16 09:12 (Protonix) 40 mg DAILY PO 10/22/16 09:00 10/26/16 09:10 (Claritin) 5 mg DAILY PO 10/21/16 18:00 10/26/16 09:12 (Tessalon) 200 mg TID PRN PO 10/23/16 05:45 10/26/16 15:12 (Sodium Chloride) 1 gm BID PO 10/23/16 21:00 10/26/16 09:12 (Pill Splitter) 1 ea UNSCH PRN OTHER 10/24/16 09:45 (Prinivil) 10 mg DAILY PO 10/25/16 09:00 10/26/16 09:12 (Lopressor) 50 mg BID PO 10/25/16 21:00 10/26/16 09:10 (Deltasone) 20 mg DAILY PO 10/27/16 09:00 Vital Signs / I&O Vital Signs Date Time Temp Pulse Resp B/P Pulse Ox O2 Delivery O2 Flow Rate FiO2 10/26/16 16:00 97.3 86 20 160/82 97 10/26/16 12:00 97.8 70 20 155/74 92 10/26/16 08:53 94 Nasal Cannula 2.00 10/26/16 08:00 97.4 116 20 166/99 93 10/26/16 03:55 97.4 85 18 178/85 94 10/25/16 23:28 97.6 72 20 166/78 95 10/25/16 21:36 Nasal Cannula 2.00 10/25/16 20:05 98.0 86 20 189/87 94 10/25/16 19:05 95 Nasal Cannula 2.00 I/O 10/25/16 10/25/16 10/25/16 10/26/16 10/26/16 10/26/16 07:00 15:00 23:00 07:00 15:00 23:00 Intake Total 600 ml 240 ml 30 ml 480 ml Output Total 125 ml 1050 ml Balance 600 ml 115 ml -1020 ml 480 ml Intake Oral 600 ml 240 ml 30 ml 480 ml Output Urine Total 125 ml 1050 ml # Voids 6 1 # Bowel Movements 0 1 Physical Exam GENERAL: Mild SOB SKIN: Warm and dry. HEAD: Normocephalic. EYES: No scleral icterus. No injection or drainage. NECK: Supple, trachea midline. No JVD or lymphadenopathy. CARDIOVASCULAR: Irregular rate and rhythm without murmurs, gallops, or rubs. RESPIRATORY: Breath sounds equal bilaterally. No accessory muscle use. GASTROINTESTINAL: Abdomen soft, non-tender, nondistended. MUSCULOSKELETAL: No cyanosis, or edema. Laboratory Laboratory Tests Test 10/26/16 06:34 Sodium Level 133 MEQ/L Potassium Level 3.2 MEQ/L Chloride Level 94 MEQ/L Carbon Dioxide Level 29.9 MEQ/L Anion Gap 9 MEQ/L Blood Urea Nitrogen 11 MG/DL Creatinine 0.52 MG/DL Estimat Glomerular Filtration 111 ML/MIN Rate Random Glucose 181 MG/DL Calcium Level 8.6 MG/DL Magnesium Level 2.0 MG/DL Imaging Last Impressions Chest X-Ray 10/21/16 1528 Signed Impressions: Service Date/Time: Friday, October 21, 2016 15:54 - CONCLUSION: 1. Minimal basilar atelectasis or scarring. No effusion or pneumothorax. Elevated right hemidiaphragm. Edin Johnston MD Assessment and Plan Problem List: (1) Pneumonia (2) Paroxysmal a-fib (3) COPD (chronic obstructive pulmonary disease) (4) CAD (coronary artery disease) (5) HTN (hypertension) (6) Pacemaker (7) Hypertension Assessment and Plan Continue abxs for suspected pneumonia. Increase amio dose. Continue monitoring. Pacer fx nl. Increase activity. D/w pt and family. Alva Flores MD Oct 26, 2016 18:58
[2016-10-26 21:11] LABS: MAGNESIUM 2.1 MG/DL (1.5-2.5); POTASSIUM 4.1 MEQ/L (3.5-5.1)
[2016-10-26] MEDS: LORazepam 0.5 MG TAB PO PRN (22:56)
[2016-10-27 04:35] VITALS: BP 159/75; PULSE 71; RESP 18; TEMP 98; O2SAT 97
[2016-10-27] MEDS: DOCUSATE SODIUM 100 MG CAP PO SCH (05:00)
[2016-10-27 08:00] VITALS: BP 178/75; PULSE 84; RESP 22; TEMP 97.8; O2SAT 95
[2016-10-27] MEDS ORDERED: predniSONE 20 MG TAB PO SCH (09:00)
[2016-10-27] MEDS: RESP: IPRATROPIUM 0.5 MG/2.5 ML NEB NEB SCH ×2 (09:05→11:59)
[2016-10-27] MEDS: RESP: BUDESONIDE 0.5 MG/2 ML NEB NEB SCH (09:05)
[2016-10-27 09:08] VITALS: O2SAT 97
[2016-10-27] MEDS: CHOLECALCIFEROL (VIT D3) 1000 UNIT TAB PO SCH (10:19)
[2016-10-27] MEDS: METOPROLOL TARTRATE 50 MG TAB PO SCH (10:19)
[2016-10-27] MEDS: ASPIRIN 81 MG CHEW TAB CHEW SCH (10:19)
[2016-10-27] MEDS: guaiFENesin E.R. 600 MG TAB PO SCH (10:19)
[2016-10-27] MEDS: LEVOTHYROXINE SODIUM 50 MCG TAB PO SCH (10:19)
[2016-10-27] MEDS: LISINOPRIL 10 MG TAB PO SCH (10:20)
[2016-10-27] MEDS: CALCIUM/VITAMIN D 250 MG/125 U TAB PO SCH (10:20)
[2016-10-27] MEDS: AMIODARONE 200 MG TAB PO SCH (10:20)
[2016-10-27] MEDS: LORATADINE 10 MG TAB PO SCH (10:20)
[2016-10-27] MEDS: SODIUM CHLORIDE 1 GRAM TAB PO SCH (10:20)
[2016-10-27] MEDS: PANTOPRAZOLE SOD 40 MG DELAYED RELEASE TAB PO SCH (10:20)
[2016-10-27] MEDS: FLUTICASONE PROPIONATE 50 MCG/ACT 16 GM NASAL SPRAY EACH NARE SCH (10:21)
[2016-10-27] MEDS: SODIUM CHLORIDE 0.9% FLUSH 10 ML FLUSH IV FLUSH SCH (10:21)
[2016-10-27 12:00] VITALS: BP 142/88; PULSE 76; RESP 22; TEMP 98.2; O2SAT 92
--- NOTE | 2016-10-27 13:27 | HHI.PR ---
Subjective Remarks This is a pleasant 86 y/o Female who was brought in from local Urgent care, for management of possible Pneumonia as per patient she has one week of worsening cough with shortness of breath, expiratory wheezing, some fever and chills, denied Chest pain, had sensation of Cold head and chest, denied headache, sore throat, ear pain, or other upper respiratory symptoms. Patient has no history of COPD or lung disease in the past. Patient does have a history of A. fib and has a pacemaker. Patient denies abdominal pain, nausea, vomiting , or diarrhea. Patient is allergic to anesthesia, Biaxin, codeine, lactose, morphine, Tussionex, and Talwin. as we know the patient has Hypertension, Atrial Fibrillation, Hyperlipidemia, subarachnoid hemorrhage, Anxiety disorder, Hypothyroidism, GERD, had Accelerated Hypertension in the past. seen in Emergency room in the presence of nurse Miss Salvador and her daughter Mrs. Ce Munoz,she states her mother is been dealing with Allergic symptoms for one month but is worse since Sunday meaning six days ago. 10/22: Improving Hyponatremia to 132 and Potassium today 3.1 replaced, she is active and no need for Physical Therapy. 10/23: Seen in her bedroom in the presence of her Daughter her laboratory was reviewed, she is not feeling well continue with cough not improving, also not able to eat well, added Ensure she uses Chocolate, asked for CT Chest. 10/24: Patient Improving her Mood, but her Lung has some crackles, her Daughter in the room, all questions answered, has some ground glass opacities, asked for student development specialist consult, has tachycardia increased dosages of Beta Blockers. 10/25: Seen in her bedroom in the presence of her Daughter Mrs. Encinas continue with Hypertension adjusted medicines, Consult Cardiology continue with Tachycardia, has Pacemaker placed. good mood improving clinically. 10/26: Stable in her bedroom improving after Steroids started by student development specialist, will continue present care continue with uncontrolled blood pressure, but improving tachycardia, [place]angel[place] management specialist following. 10/27: Seen in her bedroom and discussed with student development specialist Doctor Janusz, okay to discharge her home today, switch medicines to by mouth, follow in his office in one week. follow in two days with PCP. Objective Vital Signs Date Time Temp Pulse Resp B/P Pulse Ox O2 Delivery O2 Flow Rate FiO2 10/27/16 12:00 98.2 76 22 142/88 92 10/27/16 09:08 97 Nasal Cannula 2.00 10/27/16 08:00 97.8 84 22 178/75 95 10/27/16 04:35 98.0 71 18 159/75 97 10/26/16 23:34 98.2 73 18 163/81 94 10/26/16 20:30 97 Nasal Cannula 2.00 10/26/16 20:06 82 10/26/16 20:04 Nasal Cannula 2.00 10/26/16 19:40 97.7 88 18 200/90 97 198/96 10/26/16 16:00 97.3 86 20 160/82 97 I/O 10/26/16 10/26/16 10/26/16 10/27/16 10/27/16 10/27/16 07:00 15:00 23:00 07:00 15:00 23:00 Intake Total 30 ml 600 ml 480 ml Output Total 1050 ml 200 ml 1000 ml Balance -1020 ml 400 ml -520 ml Intake Oral 30 ml 600 ml 480 ml Output Urine Total 1050 ml 200 ml 1000 ml # Bowel Movements 1 0 0 Result Diagram: 10/26/16 1910 Imaging Last Impressions Chest X-Ray 10/21/16 1528 Signed Impressions: Service Date/Time: Friday, October 21, 2016 15:54 - CONCLUSION: 1. Minimal basilar atelectasis or scarring. No effusion or pneumothorax. Elevated right hemidiaphragm. Edin Johnston MD Procedures No procedures performed. Other Results Laboratory Tests Test 10/24/16 10/26/16 10/26/16 07:24 06:34 19:10 Phosphorus Level 2.2 MG/DL Total Creatine Kinase 217 U/L Creatine Kinase MB 6.4 NG/ML Creatine Kinase MB % 2.9 % Sodium Level 133 MEQ/L Chloride Level 94 MEQ/L Carbon Dioxide Level 29.9 MEQ/L Anion Gap 9 MEQ/L Blood Urea Nitrogen 11 MG/DL Creatinine 0.52 MG/DL Estimat Glomerular Filtration 111 ML/MIN Rate Random Glucose 181 MG/DL Calcium Level 8.6 MG/DL Potassium Level 4.1 MEQ/L Magnesium Level 2.1 MG/DL Objective Remarks GENERAL: No acute distress. but has Cough. SKIN: Warm and dry. Normal color. Normal turgor. HEAD: Atraumatic. Normocephalic. EYES: Pupils equal and round. No scleral icterus. No injection or drainage. ENT: No nasal bleeding or discharge. NECK: Trachea midline. No JVD. Neck is supple nontender. CARDIOVASCULAR: Regular rate and rhythm. No murmurs gallops or rubs appreciated. RESPIRATORY: Decreased breath sounds bilateral, No Wheezing and no crackles. GASTROINTESTINAL: Abdomen soft, non-tender, nondistended. Hepatic and splenic margins not palpable. MUSCULOSKELETAL: Extremities without clubbing, cyanosis, or edema. NEUROLOGICAL: Awake and alert. No obvious cranial nerve deficits. PSYCHIATRIC: Appropriate mood and affect; insight and judgment normal. Medications and IVs Current Medications Medications (Trade) Dose Ordered Sig/Anastasia Route Start Time Stop Time Status Last Admin (Cordarone) 100 mg DAILY PO 10/22/16 09:00 10/27/16 10:20 (Aspirin Chew) 81 mg DAILY CHEW 10/22/16 09:00 10/27/16 10:19 (Flonase Magnus Spr) 1 spray BID EACH NARE 10/21/16 21:00 10/27/16 10:21 (Synthroid) 50 mcg DAILY PO 10/22/16 09:00 10/27/16 10:19 (Ativan) 0.5 mg DAILY PRN PO 10/21/16 17:00 10/26/16 22:56 (Oscal-D 250-125) 500 mg BID PO 10/21/16 21:00 10/27/16 10:20 (Vitamin D3) 1,000 units DAILY PO 10/22/16 09:00 10/27/16 10:19 (NS Flush) 2 ml UNSCH PRN IV FLUSH 10/21/16 17:00 (NS Flush) 2 ml BID IV FLUSH 10/21/16 21:00 10/27/16 10:21 (Tylenol) 650 mg Q4H PRN PO 10/21/16 17:00 10/23/16 18:52 (Zofran Inj) 4 mg Q6H PRN IVP 10/21/16 17:00 (Dulcolax Supp) 10 mg DAILY PRN RECTAL 10/21/16 17:00 (Colace) 100 mg Q12H PO 10/21/16 17:00 10/27/16 05:00 Naloxone HCl 0.4 mg 0.4 mg UNSCH PRN IV 10/21/16 17:00 Ceftriaxone Sodium 1000 mg/ Sodium Chloride 100 ml @ 200 mls/hr Q24H IV 10/22/16 15:00 10/26/16 13:36 (Zithromax Inj/ NS 250 ml Inj) 250 ml @ 250 mls/hr Q24H IV 10/22/16 15:00 10/26/16 13:36 (Mucinex Er) 600 mg BID PO 10/21/16 21:00 10/27/16 10:19 (Protonix) 40 mg DAILY PO 10/22/16 09:00 10/27/16 10:20 (Claritin) 5 mg DAILY PO 10/21/16 18:00 10/27/16 10:20 (Tessalon) 200 mg TID PRN PO 10/23/16 05:45 10/26/16 22:56 (Sodium Chloride) 1 gm BID PO 10/23/16 21:00 10/27/16 10:20 (Pill Splitter) 1 ea UNSCH PRN OTHER 10/24/16 09:45 (Prinivil) 10 mg DAILY PO 10/25/16 09:00 10/27/16 10:20 (Lopressor) 50 mg BID PO 10/25/16 21:00 10/27/16 10:19 (Deltasone) 20 mg DAILY PO 10/27/16 09:00 10/27/16 10:19 A/P Assessment and Plan 1. SIRS will follow, associated Bronchitis, but no major changes on CXR, started on Ceftriaxone, Azithromycin, cultures negative, Influenza A and B antigen negative, continue Bronchodilator Mucolytic and Incentive spirometry. Steroids continued. CT chest demonstrates Ground Glass Opacities, Discussed with Doctor Janusz student development specialist and recommended to discharge Home on by mouth medicines and Inhalers. 2. OA by history 3. PAF with status post Pacemaker placement. increased heart rate adjusted Beta Blockers. better control 4. Anxiety disorder to continue Home medicines, stable. 5. Mitral valve prolapse 6. CAD status post Cardiac Cath 09/26/11 7. GERD continue PPI 8. Hypertension better control now. 9. Right and left hip arthroplasty 10. Brain Hemorrhage status post fall 02/14/16 11. Hypothyroidism continue Hormonal replacement. 12. Hyperlipidemia continue home medicines 13. Chronic Hyponatremia Improving. 14. Rhabdomyolysis Improving. 15 UTI on antibiotics, urine culture negative. DVT prophylaxis SCDs Code Status Full Code Discussed Condition With Patient in the room, her Daughter present in the room. also on multiple opportunities with parts manager Discharge Planning Discharge to [facility] with [facility] for Skilled nurse. Arnulfo Grimes MD Oct 27, 2016 13:27
[2016-10-27] MEDS: AZITHROMYCIN INJ 500 MG in SODIUM CHLOR 0.9% 250 ML INJ 250 ML IV SCH (15:00)
[2016-10-27] MEDS: cefTRIAXone INJ 1,000 MG in SODIUM CHLORIDE 0.9% INJ 100 ML IV SCH (15:00)
[2016-10-27 16:00] VITALS: BP 123/67; PULSE 81; RESP 18; TEMP 97.8; O2SAT 94
[2016-10-27] MEDS ORDERED: AZIT500T2 PO (16:41)
[2016-10-27] MEDS ORDERED: METO-309 PO (16:41)
[2016-10-27] MEDS ORDERED: PRED20 PO (16:41)
[2016-10-27] MEDS ORDERED: MUCI600T PO (16:41)
[2016-10-27] MEDS ORDERED: LORA-361 PO (16:41)
[2016-10-27] MEDS ORDERED: LISI10TA3 PO (16:41)
[2016-10-27] MEDS ORDERED: SYMB80AE INH (16:41)
[2016-10-27] MEDS ORDERED: BENZ100 PO (16:41)
--- NOTE | 2016-10-27 16:46 | HHI.FF ---
Face to Face Verification Diagnosis: (1) Urinary tract infection (2) Paroxysmal atrial fibrillation (3) Hypertension (4) COPD (chronic obstructive pulmonary disease) (5) Pneumonia (6) Pacemaker Physical Therapy Order: Evaluate and Treat, Improve ambulation, Strength and gait training Home Health Nursing Order: Medical education Signs/symptoms of disease process Medication education-adverse effect I have seen patient Rashmi Restrepo on 10/27/16. My clinical findings support the need for the requested home health care services because: Ltd mobility - disease progression Deconditioned w/ increased weakness High risk of falls I certify that my clinical findings support that this patient is homebound because: Unsafe to leave home unassisted Arnulfo Grimes MD Oct 27, 2016 16:45
--- NOTE | 2016-10-27 16:48 | HHI.DS ---
Discharge Summary Admission Date Oct 21, 2016 at 16:52 Discharge Date: Oct 27, 2016 Admitting Diagnosis Bronchitis/UTI/ Hyponatremia (1) COPD with exacerbation ICD Code: J44.1 Diagnosis: Principal (2) Pacemaker ICD Code: Z95.0 Diagnosis: Secondary (3) Pneumonia ICD Code: J18.9 Diagnosis: Principal (4) Paroxysmal atrial fibrillation ICD Code: I48.0 Diagnosis: Principal (5) Urinary tract infection ICD Code: N39.0 Diagnosis: Principal (6) HTN (hypertension) ICD Code: I10 Diagnosis: Principal Procedures No procedures performed Brief History - From Admission This is a pleasant 86 y/o Female who was brought in from local Urgent care, for management of possible Pneumonia as per patient she has one week of worsening cough with shortness of breath, expiratory wheezing, some fever and chills, denied Chest pain, had sensation of Cold head and chest, denied headache, sore throat, ear pain, or other upper respiratory symptoms. Patient has no history of COPD or lung disease in the past. Patient does have a history of A. fib and has a pacemaker. Patient denies abdominal pain, nausea, vomiting , or diarrhea. Patient is allergic to anesthesia, Biaxin, codeine, lactose, morphine, Tussionex, and Talwin. as we know the patient has Hypertension, Atrial Fibrillation, Hyperlipidemia, subarachnoid hemorrhage, Anxiety disorder, Hypothyroidism, GERD, had Accelerated Hypertension in the past. seen in Emergency room in the presence of nurse Miss Salvador and her daughter Mrs. Ce Munoz,she states her mother is been dealing with Allergic symptoms for one month but is worse since Sunday meaning six days ago. CBC/BMP: 10/26/16 1910 Significant Findings Laboratory Tests Test 10/26/16 06:34 Sodium Level 133 MEQ/L (136-145) Potassium Level 3.2 MEQ/L (3.5-5.1) Chloride Level 94 MEQ/L (98-107) Random Glucose 181 MG/DL (74-106) Imaging Last Impressions Chest X-Ray 10/21/16 1528 Signed Impressions: Service Date/Time: Saturday, October 21, 2016 15:54 - CONCLUSION: 1. Minimal basilar atelectasis or scarring. No effusion or pneumothorax. Elevated right hemidiaphragm. Edin Johnston MD PE at Discharge GENERAL: No acute distress. but has Cough. SKIN: Warm and dry. Normal color. Normal turgor. HEAD: Atraumatic. Normocephalic. EYES: Pupils equal and round. No scleral icterus. No injection or drainage. ENT: No nasal bleeding or discharge. NECK: Trachea midline. No JVD. Neck is supple nontender. CARDIOVASCULAR: Regular rate and rhythm. No murmurs gallops or rubs appreciated. RESPIRATORY: Decreased breath sounds bilateral, No Wheezing and no crackles. GASTROINTESTINAL: Abdomen soft, non-tender, nondistended. Hepatic and splenic margins not palpable. MUSCULOSKELETAL: Extremities without clubbing, cyanosis, or edema. NEUROLOGICAL: Awake and alert. No obvious cranial nerve deficits. PSYCHIATRIC: Appropriate mood and affect; insight and judgment normal. Hospital Course This is a pleasant 86 y/o Female who was brought in from local Urgent care, for management of possible Pneumonia as per patient she has one week of worsening cough with shortness of breath, expiratory wheezing, some fever and chills, denied Chest pain, had sensation of Cold head and chest, denied headache, sore throat, ear pain, or other upper respiratory symptoms. Patient has no history of COPD or lung disease in the past. Patient does have a history of A. fib and has a pacemaker. Patient denies abdominal pain, nausea, vomiting , or diarrhea. Patient is allergic to anesthesia, Biaxin, codeine, lactose, morphine, Tussionex, and Talwin. as we know the patient has Hypertension, Atrial Fibrillation, Hyperlipidemia, subarachnoid hemorrhage, Anxiety disorder, Hypothyroidism, GERD, had Accelerated Hypertension in the past. seen in Emergency room in the presence of nurse Miss Salvador and her daughter Mrs. Ce Munoz,she states her mother is been dealing with Allergic symptoms for one month but is worse since Sunday meaning six days ago. 10/22: Improving Hyponatremia to 132 and Potassium today 3.1 replaced, she is active and no need for Physical Therapy. 10/23: Seen in her bedroom in the presence of her Daughter her laboratory was reviewed, she is not feeling well continue with cough not improving, also not able to eat well, added Ensure she uses Chocolate, asked for CT Chest. 10/24: Patient Improving her Mood, but her Lung has some crackles, her Daughter in the room, all questions answered, has some ground glass opacities, asked for nursing specialist consult, has tachycardia increased dosages of Beta Blockers. 10/25: Seen in her bedroom in the presence of her Daughter Mrs. Encinas continue with Hypertension adjusted medicines, Consult Cardiology continue with Tachycardia, has Pacemaker placed. good mood improving clinically. 10/26: Stable in her bedroom improving after Steroids started by nursing specialist, will continue present care continue with uncontrolled blood pressure, but improving tachycardia, extension service specialist in charge following. 10/27: Seen in her bedroom and discussed with nursing specialist Doctor Janusz, skyay to discharge her home today, switch medicines to by mouth, follow in his office in one week. follow in two days with PCP. Assessment and Plan 1. SIRS will follow, associated Bronchitis, but no major changes on CXR, started on Ceftriaxone, Azithromycin, cultures negative, Influenza A and B antigen negative, continue Bronchodilator Mucolytic and Incentive spirometry. Steroids continued. CT chest demonstrates Ground Glass Opacities, Discussed with Doctor Janusz nursing specialist and recommended to discharge Home on by mouth medicines and Inhalers. 2. OA by history 3. PAF with status post Pacemaker placement. increased heart rate adjusted Beta Blockers. better control 4. Anxiety disorder to continue Home medicines, stable. 5. Mitral valve prolapse 6. CAD status post Cardiac Cath 09/26/11 7. GERD continue PPI 8. Hypertension better control now. 9. Right and left hip arthroplasty 10. Brain Hemorrhage status post fall 02/14/16 11. Hypothyroidism continue Hormonal replacement. 12. Hyperlipidemia continue home medicines 13. Chronic Hyponatremia Improving. 14. Rhabdomyolysis Improving. 15 UTI on antibiotics, urine culture negative. DVT prophylaxis SCDs Code Status Full Code Discussed Condition With Patient in the room, her Daughter present in the room. also on multiple opportunities with manager export Discharge Planning Discharge to [facility] with [facility] for Skilled nurse. Pt Condition on Discharge: Good Discharge Disposition: Disch w/ Home Health Serv Discharge Time: > 30 minutes Discharge Instructions DIET: Follow Instructions for: Heart Healthy Diet Activities you can perform: Regular-No Restrictions Arnulfo Grimes MD Oct 27, 2016 16:48
--- NOTE | 2016-10-27 17:42 | PD.CARD.PN ---
Subjective Subjective Remarks No CP or SOB, feels better Objective Medications Current Medications Medications (Trade) Dose Ordered Sig/Anastasia Route Start Time Stop Time Status Last Admin (Cordarone) 100 mg DAILY PO 10/22/16 09:00 10/27/16 10:20 (Aspirin Chew) 81 mg DAILY CHEW 10/22/16 09:00 10/27/16 10:19 (Flonase Magnus Spr) 1 spray BID EACH NARE 10/21/16 21:00 10/27/16 10:21 (Synthroid) 50 mcg DAILY PO 10/22/16 09:00 10/27/16 10:19 (Ativan) 0.5 mg DAILY PRN PO 10/21/16 17:00 10/26/16 22:56 (Oscal-D 250-125) 500 mg BID PO 10/21/16 21:00 10/27/16 10:20 (Vitamin D3) 1,000 units DAILY PO 10/22/16 09:00 10/27/16 10:19 (NS Flush) 2 ml UNSCH PRN IV FLUSH 10/21/16 17:00 (NS Flush) 2 ml BID IV FLUSH 10/21/16 21:00 10/27/16 10:21 (Tylenol) 650 mg Q4H PRN PO 10/21/16 17:00 10/23/16 18:52 (Zofran Inj) 4 mg Q6H PRN IVP 10/21/16 17:00 (Dulcolax Supp) 10 mg DAILY PRN RECTAL 10/21/16 17:00 (Colace) 100 mg Q12H PO 10/21/16 17:00 10/27/16 05:00 Naloxone HCl 0.4 mg 0.4 mg UNSCH PRN IV 10/21/16 17:00 Ceftriaxone Sodium 1000 mg/ Sodium Chloride 100 ml @ 200 mls/hr Q24H IV 10/22/16 15:00 10/26/16 13:36 (Zithromax Inj/ NS 250 ml Inj) 250 ml @ 250 mls/hr Q24H IV 10/22/16 15:00 10/26/16 13:36 (Mucinex Er) 600 mg BID PO 10/21/16 21:00 10/27/16 10:19 (Protonix) 40 mg DAILY PO 10/22/16 09:00 10/27/16 10:20 (Claritin) 5 mg DAILY PO 10/21/16 18:00 10/27/16 10:20 (Tessalon) 200 mg TID PRN PO 10/23/16 05:45 10/26/16 22:56 (Sodium Chloride) 1 gm BID PO 10/23/16 21:00 10/27/16 10:20 (Pill Splitter) 1 ea UNSCH PRN OTHER 10/24/16 09:45 (Prinivil) 10 mg DAILY PO 10/25/16 09:00 10/27/16 10:20 (Lopressor) 50 mg BID PO 10/25/16 21:00 10/27/16 10:19 (Deltasone) 20 mg DAILY PO 10/27/16 09:00 10/27/16 10:19 (Symbicort 80-4.5 Mcg Inh) 1 puff Q12HR INH 10/27/16 21:00 Vital Signs / I&O Vital Signs Date Time Temp Pulse Resp B/P Pulse Ox O2 Delivery O2 Flow Rate FiO2 10/27/16 16:00 97.8 81 18 123/67 94 10/27/16 12:00 98.2 76 22 142/88 92 10/27/16 09:08 97 Nasal Cannula 2.00 10/27/16 08:00 97.8 84 22 178/75 95 10/27/16 04:35 98.0 71 18 159/75 97 10/26/16 23:34 98.2 73 18 163/81 94 10/26/16 20:30 97 Nasal Cannula 2.00 10/26/16 20:06 82 10/26/16 20:04 Nasal Cannula 2.00 10/26/16 19:40 97.7 88 18 200/90 97 198/96 I/O 10/26/16 10/26/16 10/26/16 10/27/16 10/27/16 10/27/16 07:00 15:00 23:00 07:00 15:00 23:00 Intake Total 30 ml 600 ml 480 ml 600 ml Output Total 1050 ml 200 ml 1000 ml 1425 ml Balance -1020 ml 400 ml -520 ml -825 ml Intake Oral 30 ml 600 ml 480 ml 600 ml Output Urine Total 1050 ml 200 ml 1000 ml 1425 ml # Bowel Movements 1 0 0 Physical Exam GENERAL: Mild SOB SKIN: Warm and dry. HEAD: Normocephalic. EYES: No scleral icterus. No injection or drainage. NECK: Supple, trachea midline. No JVD or lymphadenopathy. CARDIOVASCULAR: Irregular rate and rhythm without murmurs, gallops, or rubs. RESPIRATORY: Breath sounds equal bilaterally. No accessory muscle use. GASTROINTESTINAL: Abdomen soft, non-tender, nondistended. MUSCULOSKELETAL: No cyanosis, or edema. Laboratory Laboratory Tests Test 10/26/16 19:10 Potassium Level 4.1 MEQ/L Magnesium Level 2.1 MG/DL Imaging Last Impressions Chest X-Ray 10/21/16 1528 Signed Impressions: Service Date/Time: Friday, October 21, 2016 15:54 - CONCLUSION: 1. Minimal basilar atelectasis or scarring. No effusion or pneumothorax. Elevated right hemidiaphragm. Edin Johnston MD Assessment and Plan Problem List: (1) Pneumonia (2) Paroxysmal a-fib (3) COPD (chronic obstructive pulmonary disease) (4) CAD (coronary artery disease) (5) HTN (hypertension) (6) Pacemaker (7) Hypertension Assessment and Plan Continue abxs for suspected pneumonia. Amio dose increased to 200 mg daily due to episodes of AF w RVR. Pacer fx nl. Increase activity. D/w pt and family. F/u w Dr. Fernandez as outpatient. Alva Flores MD Oct 27, 2016 17:42
[2016-10-27] MEDS ORDERED: RESP: IPRATROPIUM 0.5 MG/2.5 ML NEB NEB SCH (20:00)
[2016-10-27] MEDS ORDERED: BUDESONIDE-FORMOTEROL 80/4.5 MCG INHALER INH SCH (21:00)
[2016-10-28] MEDS ORDERED: AMIODARONE 200 MG TAB PO SCH (09:00)
--- NOTE | 2016-10-30 10:40 | RSPPFT ---
DATE OF PROCEDURE: 10/26/16 COMMENTS: VOLUMES DYNAMIC: FVC and FEV1 moderately reduced. FLOWS: FEV1% moderately reduced; FEF 25-75 severely reduced. IMPRESSION: Moderately severe obstructive ventilatory defect with minimal change post-bronchodilator. Full lung volumes would be necessary to exclude co-existent restriction.
== END 2016-10-27 18:15 | disposition home health service (06) | DRG 202 ==
LOC: NEPE 15:17 → NEDA 16:52 → N04B 19:32
PROVIDERS: ADMIT Internal Medicine; ATTEND Internal Medicine
DX: J40 Bronchitis, not specified as acute or chronic (principal); E22.2 Syndrome of inappropriate secretion of antidiuretic hormone; M62.82 Rhabdomyolysis; J44.1 Chronic obstructive pulmonary disease with (acute) exacerbation; N39.0 Urinary tract infection, site not specified; J98.11 Atelectasis; I48.0 Paroxysmal atrial fibrillation; I34.1 Nonrheumatic mitral (valve) prolapse; Z95.0 Presence of cardiac pacemaker; M19.90 Unspecified osteoarthritis, unspecified site; F41.9 Anxiety disorder, unspecified; K21.9 Gastro-esophageal reflux disease without esophagitis; I10 Essential (primary) hypertension; Z88.4 Allergy status to anesthetic agent; Z88.1 Allergy status to other antibiotic agents; Z88.5 Allergy status to narcotic agent; Z88.8 Allergy status to other drugs, medicaments and biological substances; E78.5 Hyperlipidemia, unspecified; E03.9 Hypothyroidism, unspecified; I25.10 Atherosclerotic heart disease of native coronary artery without angina pectoris; Z96.643 Presence of artificial hip joint, bilateral; Z77.22 Contact with and (suspected) exposure to environmental tobacco smoke (acute) (chronic); Z87.820 Personal history of traumatic brain injury; E87.6 Hypokalemia
CPT/HCPCS: 71010; 71260; 80048; 80053; 80061; 81001; 82550; 82552; 83036; 83605; 83735; 83880; 84100; 84132; 84439; 84443; 84484; 85025; 85610; 87040; 87086; 87449; 87804; 93005; 94060; 94150; 94640; 94664; 96365; 96374; J0456; J0696; J1644; J1940; J2930; J3475; J7030; J7050; J7512; J7626; J7644; Q9967

== ENCOUNTER 2017-05-05 11:06 | Emergency (ER) | payer MEDICARE, OTHER ==
[~2017-05-05] VITALS: Ht 154.9 cm; Wt 56.2 kg
[~2017-05-05 11:06] MED LIST changes: -ACET325T11 PO; +AMIO0.1T PO; -ASPI81 CHEW; +ASPI81CH CHEW; +AZIT500T2 PO; +BENZ100 PO; +CALC1TAB PO; -CENTTAB9 PO; -CERTTAB6; -CITRTAB8 PO; +D31000CA PO; +FLUT50SP EACH NARE; +GLUC500C5 PO; +LANS30CA PO; -LANSO15 PO; -LISI10 PO; +LISI10TA3 PO; +LORA-361 PO; +LORA-373 PO; -LORA0.5T PO; +METO-309 PO; -METO25 PO; +MUCI600T PO; -PACE200T4 PO; +PRED20 PO; -SODI1 PO; +SODI1TAB PO; +SYMB80AE INH; +TYLE325T PO; -VITA100018 PO
[2017-05-05 11:14] VITALS: BP 162/94; PULSE 72; RESP 16; TEMP 98.1; O2SAT 96
[2017-05-05] MEDS ORDERED: AMIO200T PO (11:31)
[2017-05-05] MEDS ORDERED: LISI-519 PO (11:31)
[2017-05-05] MEDS ORDERED: METO25TA3 PO (11:31)
--- NOTE | 2017-05-05 11:47 | PD ---
HPI Chief Complaint: Hypertension Time Seen by Provider: 11:20 Travel History International Travel<30 days: No Contact w/Intl Traveler<30days: No Traveled to known affect area: No History of Present Illness HPI The patient is a 87-year-old female who presents to the emergency department for headache. The patient states her headache started 2-3 days ago, radiates from the posterior aspect of her head and up to the frontal temporal areas bilateral. She now notes increasing headache with "throbbing" located over the bitemporal area. The patient does have a history of similar headaches that started after she broke her neck at C2 and C3. The patient complained of nausea 2 days ago which has resolved, denies any vomiting. She does have a history of intracranial hemorrhage after she fell and broke her neck. She only takes a baby aspirin daily, denies any other anticoagulation. She denies any vomiting or focal deficits. She took Tylenol at 10 AM this morning with minimal relief of her symptoms. The patient does have a history of hypertension and has had elevated blood pressure in the past resulting in headaches. She is followed by her assistant professor of business, Dr. Fernandez, in regards to her elevated blood pressure. PFSH Past Medical History Hx Anticoagulant Therapy: Yes (asa 81mg) Arthritis: Yes Asthma: No Atrial Fibrillation: Yes (PAROXYSMAL) Autoimmune Disease: No Anxiety: Yes Depression: No Heart Rhythm Problems: Yes (afib, mitral valve prolapse ) Cancer: No Cardiac Catheterization: Yes (09-26-11) Cardiovascular Problems: Yes (htn on meds, pacemaker, a-fib) High Cholesterol: No Chemotherapy: No Chest Pain: Yes Congestive Heart Failure: No COPD: No Cerebrovascular Accident: No Diabetes: No Diminished Hearing: No Endocrine: No Gastrointestinal Disorders: Yes (GERD) GERD: Yes Genitourinary: No Headaches: Yes Hepatitis: No Hiatal Hernia: No Hypertension: Yes Immune Disorder: No Implanted Vascular Access Dvce: Yes Kidney Stones: No Musculoskeletal: Yes (R/L hip replacement.) Neurologic: Yes (brain bleed from fall 02/14/16) Psychiatric: Yes Reproductive: No Respiratory: No Migraines: No Radiation Therapy: No Renal Failure: Yes Seizures: No Sickle Cell Disease: No Sleep Apnea: No Thyroid Disease: Yes Ulcer: No Tetanus Vaccination: Unknown Influenza Vaccination: Yes ?: Not Menopausal: Yes Past Surgical History Abdominal Surgery: Yes (gall bladder) AICD: No Arteriovenous Shunt: No Body Medical Devices: bilateral hips, and pacemaker Cardiac Surgery: Yes () Cholecystectomy: Yes ([facility] 10-18-93) Coronary Artery Bypass Graft: No Ear Surgery: No Endocrine Surgery: No Eye Surgery: Yes (cataract Bilateral) Genitourinary Surgery: No Gynecologic Surgery: No Hysterectomy: No Insulin Pump: No Joint Replacement: Yes (hip replacment) Neurologic Surgery: No Oral Surgery: Yes (gum surgery) Pacemaker: Yes ([employer]) Thoracic Surgery: No Other Surgery: Yes (PACEMAKER INSERTION 01/07, BIOPSY L LUNG, ) Social History Alcohol Use: No Tobacco Use: No Substance Use: No Allergies-Medications (Allergen,Severity, Reaction): Coded Allergies: codeine (Unverified Allergy, Severe, SEVERE N/V, 05/05/17) . lactose (Unverified Allergy, Severe, 05/05/17) . pentazocine (Unverified Allergy, Severe, Psychosis, 05/05/17) clarithromycin (Unverified Allergy, Unknown, 05/05/17) morphine (Unverified Allergy, Unknown, 05/05/17) Uncoded Allergies: ANAESTHESIA (Allergy, Severe, CARDIAC ARREST, 05/05/17) . ANESTHESIA (Allergy, Severe, CARDIAC ARREST, 05/05/17) . TUSSINEX (Allergy, Unknown, 05/05/17) . Reported Meds & Prescriptions Reported Meds & Active Scripts Active Symbicort Inh (Budesonide/Formoterol Fumarate) 80-4.5 Mcg/Act Aero 1 Puff INH Q12HR Reported Metoprolol Tartrate 25 Mg Tab 25 Mg PO BID Amiodarone (Amiodarone HCl) 200 Mg Tab 200 Mg PO DAILY Lisinopril 5 Mg Tab 5 Mg PO DAILY D3 (Cholecalciferol) 1,000 Unit Cap 1,000 Unit PO DAILY Fluticasone Nasal [place] 50 Mcg/Act Naspr 50 Mcg EACH NARE BID 50 mcg/spray Tylenol (Acetaminophen) 325 Mg Tab 325 Mg PO Q6H PRN Lorazepam 0.5 Mg Tab 0.5 Mg PO DAILY PRN Levothyroxine (Levothyroxine Sodium) 50 Mcg Tab 50 Mcg PO DAILY Sodium Chloride 1 Gm Tab 1 Gm PO DAILY Aspirin 81 Mg Chew 81 Mg CHEW DAILY Lansoprazole 30 Mg Capdr 30 Mg PO DAILY Review of Systems Except as stated in HPI: all other systems reviewed are Neg General / Constitutional: No: Fever Eyes: No: Blurred Vision, Visual changes HENT: Positive: Headaches, Other (history of previous C2-C3 fracture), No: Neck Pain Cardiovascular: No: Chest Pain or Discomfort Respiratory: No: Shortness of Breath Gastrointestinal: Positive: Nausea, No: Vomiting, Abdominal Pain Musculoskeletal: No: Weakness Neurologic: Positive: Headache, No: Focal Abnormalities, Change in Mentation, Paresthesia, Sensory Disturbance Physical Exam Narrative GENERAL: Awake, alert, very pleasant 87-year-old female who appears her stated age and is in no acute respiratory distress. SKIN: Focused skin assessment warm/dry. Petechial changes to lower extremities bilateral from the mid tibia/fibula inferiorly. HEAD: Atraumatic. Normocephalic. EYES: Pupils equal and round. Pupils are 3 mm bilateral and reactive. EOMs are intact. Patient is able to see fingers at a distance of 2 feet without difficulty. ENT: No nasal bleeding or discharge. Mucous membranes pink and moist. NECK: Trachea midline. No JVD. No tenderness of the cervical vertebrae. CARDIOVASCULAR: Regular rate and rhythm. No murmur appreciated. RESPIRATORY: No accessory muscle use. Clear to auscultation. Breath sounds equal bilaterally. GASTROINTESTINAL: Abdomen soft, non-tender, nondistended. No rebound tenderness. MUSCULOSKELETAL: No obvious deformities. No clubbing. No cyanosis. No edema. NEUROLOGICAL: Awake and alert. No obvious cranial nerve deficits. Motor grossly within normal limits. Normal speech. Nonfocal. Oriented 4. Follows commands without difficulty. PSYCHIATRIC: Appropriate mood and affect; insight and judgment normal. Data Data Last Documented VS Vital Signs Date Time Temp Pulse Resp B/P (MAP) Pulse Ox O2 Delivery O2 Flow Rate FiO2 05/05/17 14:39 68 215/116 (149) 95 05/05/17 11:14 98[address] Brain W/O Iv Contrast(Rout) (05/05/17 ) Complete Blood Count With Diff (05/05/17 11:35) Basic Metabolic Panel (Bmp) (05/05/17 11:35) Iv Access Insert/Monitor (05/05/17 11:35) Ketorolac Inj (Toradol Inj) (05/05/17 14:15) Diphenhydramine Inj (Benadryl Inj) (05/05/17 14:15) Prochlorperazine Inj (Compazine Inj) (05/05/17 14:15) Labetalol Inj (Trandate Inj) (05/05/17 14:15) Labs Laboratory Tests Test 05/05/17 11:43 White Blood Count 7.9 TH/MM3 Red Blood Count 4.55 MIL/MM3 Hemoglobin 14.1 GM/DL Hematocrit 41.8 % Mean Corpuscular Volume 92.1 FL Mean Corpuscular Hemoglobin 31.0 PG Mean Corpuscular Hemoglobin Concent 33.7 % Red Cell Distribution Width 13.3 % Platelet Count 253 TH/MM3 Mean Platelet Volume 6.4 FL Neutrophils (%) (Auto) 79.5 % Lymphocytes (%) (Auto) 8.4 % Monocytes (%) (Auto) 8.6 % Eosinophils (%) (Auto) 3.0 % Basophils (%) (Auto) 0.5 % Neutrophils # (Auto) 6.3 TH/MM3 Lymphocytes # (Auto) 0.7 TH/MM3 Monocytes # (Auto) 0.7 TH/MM3 Eosinophils # (Auto) 0.2 TH/MM3 Basophils # (Auto) 0.0 TH/MM3 CBC Comment DIFF FINAL Differential Comment Blood Urea Nitrogen 10 MG/DL Creatinine 0.54 MG/DL Random Glucose 98 MG/DL Calcium Level 8.9 MG/DL Sodium Level 130 MEQ/L Potassium Level 4.0 MEQ/L Chloride Level 94 MEQ/L Carbon Dioxide Level 25.9 MEQ/L Anion Gap 10 MEQ/L Estimat Glomerular Filtration Rate 106 ML/MIN MDM Medical Decision Making Medical Screen Exam Complete: Yes Emergency Medical Condition: Yes Medical Record Reviewed: Yes Interpretation(s) Last Impressions Head CT 05/05/17 0000 Signed Impressions: Service Date/Time: Friday, May 05, 2017 13:36 - CONCLUSION: Stable negative noncontrast CT. Michael Martinez MD Laboratory Tests Test 05/05/17 11:43 White Blood Count 7.9 TH/MM3 Red Blood Count 4.55 MIL/MM3 Hemoglobin 14.1 GM/DL Hematocrit 41.8 % Mean Corpuscular Volume 92.1 FL Mean Corpuscular Hemoglobin 31.0 PG Mean Corpuscular Hemoglobin Concent 33.7 % Red Cell Distribution Width 13.3 % Platelet Count 253 TH/MM3 Mean Platelet Volume 6.4 FL Neutrophils (%) (Auto) 79.5 % Lymphocytes (%) (Auto) 8.4 % Monocytes (%) (Auto) 8.6 % Eosinophils (%) (Auto) 3.0 % Basophils (%) (Auto) 0.5 % Neutrophils # (Auto) 6.3 TH/MM3 Lymphocytes # (Auto) 0.7 TH/MM3 Monocytes # (Auto) 0.7 TH/MM3 Eosinophils # (Auto) 0.2 TH/MM3 Basophils # (Auto) 0.0 TH/MM3 CBC Comment DIFF FINAL Differential Comment Blood Urea Nitrogen 10 MG/DL Creatinine 0.54 MG/DL Random Glucose 98 MG/DL Calcium Level 8.9 MG/DL Sodium Level 130 MEQ/L Potassium Level 4.0 MEQ/L Chloride Level 94 MEQ/L Carbon Dioxide Level 25.9 MEQ/L Anion Gap 10 MEQ/L Estimat Glomerular Filtration Rate 106 ML/MIN Differential Diagnosis Differential diagnosis includes tension headache, occipital neuralgia, hypertensive urgency, hypertensive emergency, intracranial hemorrhage, migraine , glaucoma, temporal arteritis. Narrative Course IV was established, labs are drawn and sent, and the patient was placed on cardiac telemetry monitoring and continuous pulse oximetry monitoring. The patient states that all narcotics make her nauseated, does not want morphine intravenously. Therefore, after discussion it was agreed the patient had a CT the brain and if negative would receive Toradol for her headache. The patient is comfortable with this plan of care. We will monitor her blood pressure in the emergency department. The CT scanner at [facility] was found, therefore, patient was transported to [facility] for CT the brain and then transported back to [facility]. CT of the brain was negative. The patient was reevaluated upon return, systolic blood pressure was 215, diastolic was 115. After discussion with the patient as she was administered Toradol, Benadryl, Compazine, and labetalol. The patient was then monitored for blood pressure improvement and improvement of her headache. The patient was reevaluated at 2:50 PM, her headache had improved. Blood pressure was still slightly elevated, however, she states he recently decreased her dose of lisinopril from 10 mg to 5 mg secondary to multiple falls thought secondary to low blood pressure. Therefore, the patient is advised just to monitor blood pressure once a day, keep a log, call her physician for follow-up. Patient agrees and understands. Diagnosis Primary Impression: Hypertensive urgency Additional Impression: Cephalgia Qualified Codes: R51 - Headache Patient Instructions: General Instructions Additional Instructions: Follow-up with your primary physician. Return if symptoms worsen or progress. Please provide the patient a copy of her CT results and lab results at discharge. Med/Other Pt SpecificInfo: No Change to Meds Disposition: 01 DISCHARGE HOME Condition: Stable Marshall Rea MD May 05, 2017 11:47
[2017-05-05 12:07] LABS: AUTOMATED NEUTROPHIL # 6.3 TH/MM3 (1.8-7.7); BASOPHIL % 0.5 % (0.0-2.0); EOSINOPHIL # 0.2 TH/MM3 (0-0.4); HEMATOCRIT 41.8 % (35.0-46.0); HEMOGLOBIN 14.1 GM/DL (11.6-15.3); LYMPH % 8.4 % (9.0-44.0); LYMPHOCYTE # 0.7 TH/MM3 (1.0-4.8); MEAN CELL VOLUME 92.1 FL (80.0-100.0); MEAN CORPUSCULAR HGB CONC 33.7 % (32.0-36.0); MEAN PLATELET VOLUME 6.4 FL (7.0-11.0); MONO % 8.6 % (0.0-8.0); MONOCYTE # 0.7 TH/MM3 (0-0.9); NEUT % 79.5 % (16.0-70.0); PLATELET COUNT 253 TH/MM3 (150-450); RED BLOOD COUNT 4.55 MIL/MM3 (4.00-5.30); RED CELL DISTRIBUTION WIDTH 13.3 % (11.6-17.2); WHITE BLOOD COUNT 7.9 TH/MM3 (4.0-11.0)
[2017-05-05 12:10] LABS: CALCIUM 8.9 MG/DL (8.5-10.1)
[2017-05-05 12:11] LABS: BICARBONATE 25.9 MEQ/L (21.0-32.0)
[2017-05-05 12:14] LABS: CREATININE 0.54 MG/DL (0.50-1.00)
[2017-05-05 12:19] VITALS: BP 199/81; PULSE 80; O2SAT 97
--- NOTE | 2017-05-05 13:54 | RADRPT ---
EXAM DATE/TIME: 05/05/2017 13:36 [facility] COMPARISON: CT BRAIN W/O CONTRAST, March 11, 2016, 6:00. INDICATIONS : Temporal cephalgia for three days. RADIATION DOSE: 40.77 CTDIvol (mGy) MEDICAL HISTORY : Hypertension. Cardiovascular disease SURGICAL HISTORY : Pacemaker. ENCOUNTER: Initial ACUITY: 1 day PAIN SCALE: 7/10 LOCATION: Bilateral temporal head TECHNIQUE: Multiple contiguous axial images were obtained of the head. Using automated exposure control and adj ustment of the mA and/or kV according to patient size, radiation dose was kept as low as reasonably a chievable to obtain optimal diagnostic quality images. DICOM format image data is available electro nically for review and comparison. FINDINGS: CEREBRUM: The ventricles are normal for age with mild to moderate atrophic change. Chronic small vessel ischemi c changes are again noted in the periventricular white matter. No evidence of midline shift, mass les ion, hemorrhage or acute infarction. No extra-axial fluid collections are seen. POSTERIOR FOSSA: The cerebellum and brainstem are intact. The 4th ventricle is midline. The cerebellopontine angle i s unremarkable. EXTRACRANIAL: The visualized portion of the orbits is intact. SKULL: The calvaria is intact. No evidence of skull fracture. CONCLUSION: Stable negative noncontrast CT. Michael Martinez MD on May 05, 2017 at 13:51 Board Certified Radiologist. This report was verified electronically.
[2017-05-05] MEDS ORDERED: KETOROLAC TROMETHAMINE 30 MG/ML (IVP) VIAL IV PUSH ONE (14:15)
[2017-05-05] MEDS ORDERED: diphenhydrAMINE HCL 50 MG/ML VIAL IV PUSH ONE (14:15)
[2017-05-05] MEDS ORDERED: PROCHLORPERAZINE INJ 10 MG/2 ML VIAL IV PUSH ONE (14:15)
[2017-05-05] MEDS ORDERED: LABETALOL HCL 100 MG/20 ML VIAL IV PUSH ONE (14:15)
[2017-05-05 14:39] VITALS: BP 215/116; PULSE 68; O2SAT 95
[2017-05-05 15:01] VITALS: BP 168/67
== END 2017-05-05 15:29 | disposition home or self-care (01) ==
LOC: PHED 11:06
DX: R51 Headache (principal); I10 Essential (primary) hypertension; M19.90 Unspecified osteoarthritis, unspecified site; I48.91 Unspecified atrial fibrillation; F41.9 Anxiety disorder, unspecified; I34.1 Nonrheumatic mitral (valve) prolapse; K21.9 Gastro-esophageal reflux disease without esophagitis; Z79.899 Other long term (current) drug therapy; Z88.5 Allergy status to narcotic agent
CPT/HCPCS: 70450; 80048; 85025; 96374; 96375; 99285; J0780; J1200; J1885